=== PATIENT | female | born 1980 | race African-American/Black ===

== ENCOUNTER 2017-08-13 04:26 | Inpatient (IN) | payer OTHER ==
[2017-08-13] MEDS ORDERED: Albuterol Sulfate 2.5 mg/3 ml Neb ONE ×3 (04:49→05:04)
[2017-08-13] MEDS ORDERED: Albuterol Sulfate 2.5 mg/0.5 ml Neb ONE (04:50)
[2017-08-13] MEDS ORDERED: methylPREDNISolone Sod Succ/PF 125 MG/2 ML VIAL ONE (04:58)
[2017-08-13] MEDS ORDERED: Water For Inject, Bacteriostat 30 ML ONE (04:59)
[2017-08-13] MEDS ORDERED: Sterile Water 0 ML ONE (04:59)
[2017-08-13 05:24] LABS: #Eosinphils 0.2 thou/uL (0.0-0.7); #Lymphocytes 1.6 thou/uL (1.20-3.40); #Monocytes 0.3 thou/uL (0.11-0.59); #Neutrophils 5.3 thou/uL (1.40-6.50); %Basophils 0.3 % (0.0-1.0); %Eosinophils 2.9 % (0.0-10.0); %Lymphocytes 21.3 % (21.0-51.0); %Monocytes 4.1 % (0.0-10.0); Hematocrit 38.1 % (36.0-47.0); Mean Platelet Volume 7.6 fL (7.4-10.4); Red Blood Cell (RBC) Count 4.68 mill/uL (4.20-5.40); White Blood Cell (WBC) Count 7.4 thou/uL (4.8-10.8)
[2017-08-13] MEDS ORDERED: Azithromycin 500 MG VIAL ONE (05:25)
[2017-08-13] MEDS ORDERED: Sulfameth/Trimethoprim DS 800-160mg TAB ONE (05:25)
[2017-08-13 05:34] LABS: Oxyhemoglobin 97.1 % (94.0-97.0); Sodium 141 mmol/L (135-148)
[2017-08-13 05:36] LABS: Modified Allen's Test POSITIVE; Spontaneous Rate 24 min; Vent YES
[2017-08-13 05:47] LABS: Lactic Acid - Sepsis 1.9 mmol/L (0.5-2.2)
[2017-08-13 05:50] LABS: ALT (SGPT) 18 U/L (8-55); AST (SGOT) 16 U/L (5-34); Alkaline Phosphatase 80 U/L (40-150); Anion Gap 12 mmol/L (10-20); BUN (Urea Nitrogen) 7 mg/dL (7.0-18.7); Bilirubin, Total 0.2 mg/dL (0.2-1.2); CK (CPK) 142 U/L (29-168); Calc. Creatinine Clearance 0 mL/min (70-130); Carbon Dioxide 25 mmol/L (22-29); Chloride 105 mmol/L (98-107); Estimated GFR-MDRD Greater than 90; Globulin 3.4 g/dL (2.4-3.5); Lipase 9 U/L (8-78); Protein, Total 7.6 g/dL (6.0-8.3)
[2017-08-13 05:53] LABS: Oxyhemoglobin 97.8 % (94.0-97.0); Sodium 140 mmol/L (135-148)
[2017-08-13 05:54] LABS: Troponin I Less than 0.010 ng/mL (< 0.028)
[2017-08-13 05:54] LABS: Modified Allen's Test POSITIVE
[2017-08-13 05:55] LABS: Vent YES
[2017-08-13] MEDS ORDERED: Ondansetron HCl/PF 4 MG/2 ML Vial IVP PRN (07:07)
[2017-08-13] MEDS ORDERED: Ondansetron ODT 4 MG TAB SL PRN (07:07)
[2017-08-13] MEDS ORDERED: Acetaminophen 325 MG TAB PO PRN (07:07)
[2017-08-13] MEDS ORDERED: Albuterol Sulfate 2.5 mg/0.5 ml Neb NEB SCH (07:15)
[2017-08-13] MEDS: Albuterol Sulfate 2.5 mg/3 ml Neb NEB SCH ×5 (07:19→22:13)
[2017-08-13 07:20] VITALS: BMI 58.3
--- NOTE | 2017-08-13 08:02 | RAD ---
UPRIGHT PORTABLE CHEST 1 VIEW: Date: 08/13/17 HISTORY: 37-year-old female with dyspnea, coughing, and shortness of breath. COMPARISON: 02/11/17. FINDINGS: Minimal increased bronchovascular markings bilaterally. There is improvement from a 02/11/17 study. IMPRESSION: Increased bronchovascular markings without confluent pneumonia. POS: [facility]
--- NOTE | 2017-08-13 08:03 | RAD ---
CHEST ONE VIEW: History: 37-year-old with dyspnea. FINDINGS: Mild increased bronchovascular markings bilaterally. There is some mild vascular congestion. No confl uent pneumonia, overt edema, or significant pleural effusion. IMPRESSION: Increased bronchovascular markings and mild vascular congestion, stable from prior study. No new proc ess. POS: [facility]
[2017-08-13] MEDS ORDERED: Furosemide 40 MG/4 ML VIAL ONE (08:37)
[2017-08-13] MEDS ORDERED: Sulfameth/Trimethoprim DS 800-160mg TAB PO SCH (09:00)
[2017-08-13] MEDS ORDERED: Amlodipine 5 MG TAB PO SCH (09:00)
[2017-08-13] MEDS ORDERED: Labetalol 100 MG/20 ML MDV SLOW IVP PRN (09:06)
[2017-08-13 09:12] LABS: Troponin I Less than 0.010 ng/mL (< 0.028)
[2017-08-13] MEDS ORDERED: Furosemide 40 MG/4 ML VIAL SLOW IVP SCH (09:15)
[2017-08-13] MEDS: Enoxaparin Sodium 40 MG/0.4 ML SYRINGE SC SCH (10:54)
[2017-08-13] MEDS: Mometasone/Formoterol 120 PUFF INHALER INH SCH ×2 (11:07→19:01)
--- NOTE | 2017-08-13 11:15 | HP-2 ---
DATE OF ADMISSION: 08/13/2017 CODE STATUS: FULL. PRIMARY CARE PHYSICIAN: [facility]. ATTENDING: Dr. Chaparro Garcia RESIDENT: PGY-1 - Dr. Maru Thomas HISTORIAN: Patient. SPECIALIST: Dr. Shea. CHIEF COMPLAINT: Shortness of breath. HISTORY OF PRESENT ILLNESS: December Jamey is a 37-year-old female with a past medical history of asthma and HIV brought in via EMS for shortness of breath. The patient states that she uses albuterol intermittently. She denies fevers, chills, URI symptoms. She has a history of HIV. When we were getting this history, the patient was on BiPAP in the ER, she had just received ketamine and she was mildly sedated. She had a GCS of 13. She would open her eyes to command and she would follow commands. She opened her eyes to my voice and she followed commands. ER: The patient received epinephrine, Bactrim, Rocephin, Solu-Medrol and a nebulized treatment x1. The patient also received ketamine before she was placed on BiPAP. PAST MEDICAL HISTORY: HIV, asthma, GERD, and likely obstructive sleep apnea and hypertension. PAST SURGICAL HISTORY: None. ALLERGIES: AMPICILLIN. MEDICATIONS: Dulera, Protonix, amlodipine, albuterol. FAMILY HISTORY: None. SOCIAL HISTORY: Denies tobacco, alcohol, or drug use. REVIEW OF SYSTEMS: GENERAL: Denies fevers, chills. RESPIRATORY: Denies cough, congestion. Endorses shortness of breath and difficulty breathing. CARDIOVASCULAR: No chest pain or palpitations. GASTROINTESTINAL: Denies nausea or vomiting. SKIN: Denies rashes or lesions. MUSCULOSKELETAL: Denies pain, tenderness. NEURO: Denies weakness. PHYSICAL EXAMINATION: VITAL SIGNS: Blood pressure 173/108, pulse 88, respiratory rate 23, T-max 98.9 , pulse oximetry 90% on BiPAP with settings of 13 and 6 and a rare 14. GENERAL: Alert and oriented x4, no apparent distress, obese, slightly sedated. GCS of 13. EYES: PERRLA, EOMI. ENT: Nasal mucosa and oropharynx within normal limits. NECK: Supple, no lymphadenopathy, no thyromegaly. CARDIOVASCULAR: Regular rate and rhythm. No murmurs, rubs or gallops, 2+, pedal and radial pulses. RESPIRATORY: Increased effort, subcostal retractions, wheezing bilaterally throughout all lung molina. ABDOMEN: Soft, nontender to palpation. Bowel sounds in all 4 quadrants. No mass or distention. MUSCULOSKELETAL: Structure within normal limits. EXTREMITIES: No clubbing, cyanosis or edema. NEUROLOGIC: No focal deficits. PSYCHIATRIC: Appropriate. LABORATORY DATA: CBC 7.4, 12.3, 38.1, 254. CMP; 139, 3.0, 105, 25, 7.73, 198. AST, ALT, alkaline phosphatase; 16, 18, 80. Calcium 9, total protein 7.6, albumin 4.2, total bilirubin 0.2, lipase 9. CR on a prior admission was 14. ABG; 7.21, 65, 156 and 26, repeat pH after BiPAP was 7.25. EKG: Normal sinus rhythm. Chest x-ray no evidence of infiltrate or consolidation. ASSESSMENT AND PLAN: This is a 37-year-old female with a past medical history of asthma and human immunodeficiency virus who presents with shortness of breath, hypoxia admitted for acute hypoxic hypercapnic respiratory failure secondary to asthma. 1. Acute Hypoxic Hypercapnic Respiratory Failure: The patient was placed on BiPAP, was seen by Dr. Hunter in the ER who recommended keeping the patient on BiPAP for the next 4-5 hours and then reevaluating the patient's respiratory status at that point to evaluate if the patient should be intubated or not. The patient was placed on methylprednisolone 40 mg IV q.6h. The patient was placed on albuterol q.4h. scheduled and q.2h. p.r.n.The patient was placed on Dulera. If there is an allergy related etiology, would recommend placing the patient on Zyrtec and/or Evelyn. 2. Respiratory acidosis secondary to an asthma exacerbation. The patient was placed on on BiPAP after initial abg drawn in the ER, with a repeat abg drawn showing mild improvement. It was decided with Dr. Hunter at bedside that we will repeat an ABG in 4-5 hours after the patient has been on BiPAP for that amount of time to evaluate for improvement. If worsening of symptoms, the patient may require intubation at that point. 3. Human immunodeficiency virus. We will consult Dr. Shea who is the patient' s doctor who manages her HIV. The patient was given Bactrim in the ER for prophylaxis. We will reorder the patient's CD4 count to evaluate where she is at. 4. Hypertension. We will restart the patient's amlodipine at 2.5 mg p.o. daily. 5. Gastroesophageal reflux disease. We will start the patient on her home medication of Protonix. 6. Likely obstructive sleep apnea. We will continue to monitor on BiPAP. 7. Possible pneumonia. The patient may not mount a pneumonia that will be evident on chest x-ray due to her HIV status. We will consider treating the patient empirically with antibiotics. The patient is covered at this time for 24 hours due to prophylactic antibiotics with Rocephin and Bactrim in the ER. 8. Deep venous thrombosis. We will place the patient on Lovenox. DISPOSITION/LENGTH OF HOSPITAL STAY: 3 days. Symptomatic medications will be provided. The history and physical exam as well as management discussed with Dr. Garcia. MARITA
[2017-08-13 11:47] LABS: Troponin I Less than 0.010 ng/mL (< 0.028)
[2017-08-13] MEDS ORDERED: SODIUM CHLORIDE 0.9% IVPB SCH (12:00)
[2017-08-13] MEDS ORDERED: METHYLPREDNISOLONE SOD SUCC IVPB SCH (12:00)
[2017-08-13] MEDS: Labetalol HCl 100 MG/20 ML VIAL SLOW IVP PRN ×3 (14:16→21:04)
[2017-08-13] MEDS: Acyclovir 800 mg Tablet PO SCH (20:02)
[2017-08-13] MEDS: Metoprolol Tartrate 25 MG TAB PO SCH (20:02)
[2017-08-13] MEDS ORDERED: FLU VACC QS2017-18 36 mo. & older 0.5 ML SYRINGE IM ONE (21:00)
[2017-08-14] MEDS ORDERED: Lorazepam 1 MG TAB PO SCH (00:15)
--- NOTE | 2017-08-14 00:34 | CON ---
DATE OF CONSULTATION: 08/13/2017 SERVICE: Pulmonary Medicine. REASON FOR CONSULTATION: Respiratory failure. HISTORY OF PRESENT ILLNESS: Patient is a 37-year-old -Indian female with past medical history of significant for HIV. At one point in the past, she presented to the hospital with an acute respiratory issue. She was found to have diastolic heart failure and she was diuresed adequately. She was discharged home and did really quite well. She had radiographic clearance of her chest x-ray. A couple of months later, she had a repeat pulmonary infiltrate. At this time, it did not clear with diuretics. Additional investigation revealed that she had HIV and she was likely suffering from PJP. She was initiated on some empiric antibiotics and she actually improved dramatically. At this time, however, she is on prophylaxis. She presented to the emergency department with a 7-day history of increasing difficulty with breathing. She presented with a basically abrupt asthma exacerbation. She has been using her p.r.n. albuterol for the last 2-3 days fairly regularly. This has failed to improve her symptoms. Prior to this, she had fairly infrequent symptoms. PAST MEDICAL HISTORY: 1. HIV. 2. Gastroesophageal reflux disease. 3. Obstructive sleep apnea, likely. 4. Chronic diastolic heart failure. 5. Hypertension. 6. Asthma, possible. PAST SURGICAL HISTORY: None. SOCIAL HISTORY: Negative for current tobacco, alcohol, or illicit drug use. She denies any exposure to chemicals, dust, asbestos, or tuberculosis. FAMILY HISTORY: Noncontributory. ALLERGIES: AMPICILLIN. MEDICATIONS: List of her outpatient medications were reviewed. Interestingly, she is not on anything for HIV. REVIEW OF SYSTEMS: General, head, ears, eyes, nose, throat, cardiovascular, respiratory, GI, , musculoskeletal, neurologic, and skin are negative except as mentioned in the HPI. PHYSICAL EXAMINATION: VITAL SIGNS: Afebrile, pulse 100, blood pressure 167/85, respirations 23, saturation 96% on 3 liters nasal cannula at this time. Earlier, she required BiPAP which need to be titrated aggressively up and down. HEENT: Normocephalic, atraumatic. Sclerae are white, conjunctivae pink. Oral mucosa is moist without lesions. LUNGS: Decent air entry. There is a polyphonic wheeze throughout bilateral lung molina with prolonged expiratory phase. Careful auscultation of the bibasilar region also demonstrates fine crackles. No rhonchi are appreciated. HEART: Normal rate, regular. ABDOMEN: Soft, nontender, nondistended. Bowel sounds are positive. MUSCULOSKELETAL: No cyanosis or clubbing. No pitting in the bilateral lower extremities. NEUROLOGIC: Grossly nonfocal. LABORATORY DATA: WBC 7.4, hemoglobin 12.3, platelets 254,000. Neutrophil count is 71%, pH 7.22, pCO2 65, originally which improved very slightly on BiPAP. PO2 was 250 at the time on 40% FiO2. Troponin is unremarkable x2. LDH 214, lactic acid 1.9. TSH 1.2. Lipase is unremarkable. Liver function studies were also unremarkable. Potassium 3.0, but otherwise basic metabolic profile was unremarkable. IMAGING: Chest x-ray demonstrates soft tissue attenuation, but there is increased bronchovascular markings and mild vascular congestion. This is stable compared to prior evaluation. ASSESSMENT: 1. Acute hypoxic and hypercapnic respiratory failure. 2. Asthma with acute exacerbation, possible. 3. Acute on chronic diastolic heart failure. 4. Morbid obesity. 5. Obstructive sleep apnea. 6. 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 7. Obstructive sleep apnea, still suspected. PLAN: I will provide her with a dose of Lasix. She is a bit volume overloaded , which could create a cardiac wheeze. We will continue aggressive titration of her BiPAP. If she is not tolerating significant breaks by this afternoon, intubation will need to be performed. In the meantime, we will be aggressive with nebulized medications and steroids. At this point, I do not see any indication for antibiotics. Critical Care will continue to follow. CRITICAL CARE TIME: 45 minutes. MARITA
[2017-08-14] MEDS: Albuterol Sulfate 2.5 mg/3 ml Neb NEB SCH ×2 (02:50→08:23)
[2017-08-14 04:51] LABS: #Eosinphils 0.1 thou/uL (0.0-0.7); #Monocytes 0.3 thou/uL (0.11-0.59); #Neutrophils 10.8 thou/uL (1.40-6.50); %Basophils 0.1 % (0.0-1.0); %Eosinophils 0.4 % (0.0-10.0); %Lymphocytes 8.4 % (21.0-51.0); %Monocytes 2.2 % (0.0-10.0); Hematocrit 36.6 % (36.0-47.0); Mean Platelet Volume 7.7 fL (7.4-10.4); Red Blood Cell (RBC) Count 4.49 mill/uL (4.20-5.40); White Blood Cell (WBC) Count 12.2 thou/uL (4.8-10.8)
[2017-08-14 05:01] LABS: Anion Gap 10 mmol/L (10-20); BUN (Urea Nitrogen) 13 mg/dL (7.0-18.7); Calc. Creatinine Clearance 266 mL/min (70-130); Calcium 9.7 mg/dL (7.8-10.44); Carbon Dioxide 27 mmol/L (22-29); Chloride 106 mmol/L (98-107); Estimated GFR-MDRD Greater than 90
--- NOTE | 2017-08-14 07:16 | PDOC.FM ---
- Subjective Subjective: Patient is doing well since BiPAP was discontinued. She has been able to maintain oxygen saturations without supplemental oxygen. - Objective MAR Reviewed: Yes Vital Signs & Weight: Vital Signs (12 hours) Temp Pulse Resp BP Pulse Ox 08/14/17 03:00 98.7 F 08/14/17 02:50 85 17 95 08/13/17 23:00 98.1 F 08/13/17 22:13 97 22 H 97 08/13/17 21:04 103 H 175/68 H 08/13/17 19:29 99.0 F 103 H 20 97 Weight Weight 162.9 kg Most Recent Monitor Data Heart Rate from ECG 92 NIBP 146/94 NIBP BP-Mean 113 Respiration from ECG 21 SpO2 95 I&O: 08/13/17 08/14/17 08/15/17 06:59 06:59 06:59 Intake Total 1132 Output Total 3200 Balance -2067 Result Diagrams: 08/14/17 04:14 08/14/17 04:14 <Katelyn Moreno - Last Filed: 08/14/17 10:13> - Objective Vital Signs & Weight: Vital Signs (12 hours) Temp Pulse Resp BP Pulse Ox 08/14/17 16:45 98.6 F 88 16 146/87 H 95 08/14/17 11:00 98.0 F 70 16 94 L 08/14/17 09:32 75 08/14/17 08:26 99 08/14/17 08:23 75 16 99 08/14/17 08:00 98.3 F 75 20 98 Weight Weight 162.9 kg Most Recent Monitor Data Heart Rate from ECG 97 NIBP 171/80 NIBP BP-Mean 115 Respiration from ECG 20 SpO2 95 I&O: 08/13/17 08/14/17 08/15/17 06:59 06:59 06:59 Intake Total 1132 1000.1 Output Total 3200 165 Balance -2067 835.1 Result Diagrams: 08/14/17 04:14 08/14/17 04:14 <David Haile - Last Filed: 08/14/17 17:16> Phys Exam - Physical Examination Constitutional: NAD HEENT: PERRLA Respiratory: wheezing present (diffuse, but less prominent compared to prior examination) Cardiovascular: RRR Gastrointestinal: soft, non-tender Musculoskeletal: no edema Neurological: moves all 4 limbs Psychiatric: A&O x 3 <Katelyn Moreno - Last Filed: 08/14/17 10:13> Dx/Plan (1) Acute respiratory failure with hypoxia Code(s): J96.01 - ACUTE RESPIRATORY FAILURE WITH HYPOXIA Status: Resolved Plan: Resolved. Pt no longer requiring oxygen. Likely secondary to a combination of asthma and pulmonary edema. Pt's most recent from January 2017 shows normal EF, with no diastolic dysfunction, but clinically appears to have some degree of dysfunction. Will discharge pt with inhaler for treatment of asthma as well as a diuretic medication. (2) HTN (hypertension) Code(s): I10 - ESSENTIAL (PRIMARY) HYPERTENSION Status: Chronic QualifierTitle: Hypertension type: essential hypertension Qualified Code( s): I10 - Essential (primary) hypertension Plan: Pt's home medications restarted. Will also add on HCTZ. (3) Diabetes mellitus Code(s): E11.9 - TYPE 2 DIABETES MELLITUS WITHOUT COMPLICATIONS Status: Acute Plan: Diet controlled per pt. Fasting blood sugar 136 this morning. Will check A1C. Consistent carb diet. (4) CINDI (obstructive sleep apnea) Code(s): G47.33 - OBSTRUCTIVE SLEEP APNEA (ADULT) (PEDIATRIC) Status: Chronic Plan: Pt to schedule outpatient sleep study with Dr. Hunter. (5) HIV (human immunodeficiency virus infection) Status: Chronic Plan: Continue Genvoya and prophylactic medications. CD4 count pending. Pt follows up regularly with Dr. Shea. - Plan Plan: Disposition: stable, will transfer to medical floor today. Possible discharge tomorrow. <Katelyn Moreno - Last Filed: 08/14/17 10:13> Attending Addendum - Attending Addendum I personally evaluated the patient and discussed the management with Dr. Moreno. I agree with the History, Examination, Assessment and Plan documented above with any addition or exceptions noted below. <David Haile - Last Filed: 08/14/17 17:16>
[2017-08-14] MEDS ORDERED: Elviteg/Cob/Emtri/Tenof Alafen [Genvoya Tablet] PO SCH ×2 (08:00)
[2017-08-14] MEDS: Mometasone/Formoterol 120 PUFF INHALER INH SCH ×2 (08:25→20:05)
[2017-08-14] MEDS: Amlodipine 10 MG TAB PO SCH (09:32)
[2017-08-14] MEDS: Metoprolol Tartrate 25 MG TAB PO SCH ×2 (09:32→20:30)
[2017-08-14] MEDS: predniSONE 20 MG TAB PO SCH (09:32)
[2017-08-14] MEDS: Acyclovir 800 mg Tablet PO SCH ×3 (09:33→20:31)
[2017-08-14] MEDS: Enoxaparin Sodium 40 MG/0.4 ML SYRINGE SC SCH (09:33)
[2017-08-14] MEDS: Fluconazole 100 MG TAB PO SCH (09:33)
[2017-08-14] MEDS ORDERED: Hydrochlorothiazide 25 MG TAB PO SCH (10:00)
[2017-08-14 10:38] LABS: Hemoglobin A1c 5.8 % (4.0-6.0)
[2017-08-14 12:15] LABS: Absolute CD4 17 /uL (359-1519); Lymphocytes/Gated Cell Count 0.4 x10E3/uL (0.7-3.1)
--- NOTE | 2017-08-14 19:22 | PRG ---
DATE OF SERVICE: 08/14/2017 SERVICE: Pulmonary Medicine. INTERVAL HISTORY: The patient doing great from a respiratory standpoint. She denies any current genevieve rtness of breath, fevers, chills, nausea, or vomiting. She remains on a little bit of nasal cannula. She has not required any additional BiPAP overnight otherwise. She started getting better shortly after she was given a dose of Lasix and had significant urine output with it. She really responded t oo quickly to therapy for this to be office services representative of true asthma exacerbation. PHYSICAL EXAMINATION: VITAL SIGNS: Afebrile, pulse 70, blood pressure 171/80, respirations 16, and saturation 94% on 3 lit ers nasal cannula. GENERAL: Patient is awake, alert, in no apparent distress. LUNGS: Excellent air entry. There is minimal polyphonic wheezing in the bibasilar region. She is m uch improved air entry and there is no longer significant prolonged expiratory phase. Crackles are e vident in very minimal. HEART: Normal rate, regular. ABDOMEN: Soft, nontender, nondistended. Bowel sounds positive. MUSCULOSKELETAL: No cyanosis or clubbing. No pitting in the bilateral lower extremities. NEUROLOGIC: Grossly nonfocal. LABORATORY DATA: WBC 12.2, hemoglobin 11.7, platelets 265,000. Basic metabolic profile is unremarka ble. Hemoglobin A1c is normal. CD4 count is 17. ASSESSMENT: 1. Acute hypoxic and hypercapnic respiratory failure. 2. Asthma with acute exacerbation, possible. 3. Acute on chronic diastolic heart failure. 4. Morbid obesity. 5. Obstructive sleep apnea. 6. Human immunodeficiency virus with low CD4 count. 7. Obstructive sleep apnea, suspected. PLAN: We will continue diuresing her gently as time goes on. At this point, she is stable for trans ition out of the hospital. I would like for a followup with her previously scheduled plan of getting a polysomnogram prior to being seen in clinic. We can consider giving her a combination long-acting beta agonist, inhaled corticosteroid. Steroids will be deescalated. Pulmonary will continue to fol low her this time being.
[2017-08-15 06:45] LABS: Anion Gap 11 mmol/L (10-20); BUN (Urea Nitrogen) 19 mg/dL (7.0-18.7); Calc. Creatinine Clearance 261 mL/min (70-130); Calcium 9.3 mg/dL (7.8-10.44); Carbon Dioxide 24 mmol/L (22-29); Chloride 110 mmol/L (98-107); Estimated GFR-MDRD Greater than 90
[2017-08-15] MEDS: Mometasone/Formoterol 120 PUFF INHALER INH SCH (06:46)
--- NOTE | 2017-08-15 08:44 | PDOC.FM ---
- Subjective Subjective: Patient is doing well this morning. Her breathing remains stable. No adverse events overnight. - Objective MAR Reviewed: Yes Vital Signs & Weight: Vital Signs (12 hours) Temp Pulse Resp BP Pulse Ox 08/15/17 04:00 98.0 F 69 20 151/98 H 94 L 08/15/17 01:22 98.6 F 95 20 151/83 H 94 L 08/14/17 20:05 102 H 16 97 08/14/17 20:00 98.5 F 102 H 16 151/85 H 97 Weight Weight 162.9 kg Most Recent Monitor Data Heart Rate from ECG 97 NIBP 171/80 NIBP BP-Mean 115 Respiration from ECG 20 SpO2 95 I&O: 08/14/17 08/15/17 08/16/17 06:59 06:59 06:59 Intake Total 1132 2480.1 Output Total 3200 165 Balance -6 2315.1 Result Diagrams: 08/14/17 04:14 08/15/17 05:16 <Katelyn Moreno - Last Filed: 08/15/17 10:19> - Objective Vital Signs & Weight: Vital Signs (12 hours) Temp Pulse Resp BP Pulse Ox 08/15/17 08:55 75 08/15/17 08:35 98.5 F 75 20 136/80 93 L 08/15/17 08:00 98.0 F 75 20 94 L 08/15/17 04:00 98.0 F 69 20 151/98 H 94 L 08/15/17 01:22 98.6 F 95 20 151/83 H 94 L Weight Weight 162.9 kg Most Recent Monitor Data Heart Rate from ECG 97 NIBP 171/80 NIBP BP-Mean 115 Respiration from ECG 20 SpO2 95 I&O: 08/14/17 08/15/17 08/16/17 06:59 06:59 06:59 Intake Total 1132 2480.1 Output Total 3200 165 Balance -2 2315.1 Result Diagrams: 08/14/17 04:14 08/15/17 05:16 <David Haile A - Last Filed: 08/15/17 13:03> Phys Exam - Physical Examination Constitutional: NAD Respiratory: clear to auscultation bilateral Cardiovascular: RRR Gastrointestinal: soft, non-tender Musculoskeletal: edema present Neurological: moves all 4 limbs Psychiatric: A&O x 3 Skin: no rash <Katelyn Moreno - Last Filed: 08/15/17 10:19> Dx/Plan (1) Acute respiratory failure with hypoxia Code(s): J96.01 - ACUTE RESPIRATORY FAILURE WITH HYPOXIA Status: Resolved Plan: Resolved. Pt no longer requiring oxygen. Likely secondary to a combination of asthma and pulmonary edema. Pt's most recent from January 2017 shows normal EF, with no diastolic dysfunction, but clinically appears to have some degree of dysfunction. Will discharge pt today with inhaler for treatment of asthma as well as HCTZ. (2) HTN (hypertension) Code(s): I10 - ESSENTIAL (PRIMARY) HYPERTENSION Status: Chronic QualifierTitle: Hypertension type: essential hypertension Qualified Code( s): I10 - Essential (primary) hypertension Plan: BPs have significantly improved. (3) Diabetes mellitus Code(s): E11.9 - TYPE 2 DIABETES MELLITUS WITHOUT COMPLICATIONS Status: Chronic Plan: Diet controlled per pt. A1C 5.2. Consistent carb diet. (4) CINDI (obstructive sleep apnea) Code(s): G47.33 - OBSTRUCTIVE SLEEP APNEA (ADULT) (PEDIATRIC) Status: Suspected Plan: Pt implored to schedule outpatient sleep study with Dr. Hunter. (5) HIV (human immunodeficiency virus infection) Status: Chronic Plan: CD4 indicates noncompliance. Pt isntructed to take medications regularly and to make a follow-up appointment with Dr. Shea. <Katelyn Moreno - Last Filed: 08/15/17 10:19> Attending Addendum - Attending Addendum I personally evaluated the patient and discussed the management with Dr. Moreno. I agree with the History, Examination, Assessment and Plan documented above with any addition or exceptions noted below. <David Haile - Last Filed: 08/15/17 13:03>
[2017-08-15] MEDS: Metoprolol Tartrate 25 MG TAB PO SCH (08:55)
[2017-08-15] MEDS: Amlodipine 10 MG TAB PO SCH (08:55)
[2017-08-15] MEDS: predniSONE 20 MG TAB PO SCH (09:00)
[2017-08-15] MEDS: Fluconazole 100 MG TAB PO SCH (09:00)
[2017-08-15] MEDS ORDERED: Hydrochlorothiazide 25 MG TAB PO SCH (09:00)
[2017-08-15] MEDS: Acyclovir 800 mg Tablet PO SCH ×2 (09:04→14:38)
[2017-08-15] MEDS: Enoxaparin Sodium 40 MG/0.4 ML SYRINGE SC SCH (09:04)
--- NOTE | 2017-08-15 13:11 | PRG ---
DATE OF SERVICE: 08/15/2017 SERVICE: Pulmonary Medicine. INTERVAL HISTORY: The patient is doing fantastic from a respiratory standpoint. She is on room air. She feels like she is back to her baseline. She denies any current fevers, chills, nausea, vomitin g or chest discomfort. PHYSICAL EXAMINATION: VITAL SIGNS: Afebrile, pulse 75, blood pressure 136/80, respirations 20, saturation 93% on room air. GENERAL: The patient is awake, alert, no apparent distress. LUNGS: Excellent air entry. I do not appreciate prolonged expiratory phase. The wheezing has resol marjorie. Crackles are improved. HEART: Normal rate, regular. ABDOMEN: Soft, nontender, nondistended, bowel sounds positive. MUSCULOSKELETAL: No cyanosis or clubbing. No pitting in the bilateral lower extremities. NEUROLOGIC: Grossly nonfocal. LABORATORY DATA: WBC 12.2, hemoglobin 11.7, platelets 265,000. Basic metabolic profile is otherwise unremarkable. CD4 count 17. ASSESSMENT: 1. Acute hypoxic and hypercapnic respiratory failure. 2. Asthma with acute exacerbation, possible. 3. Acute on chronic diastolic heart failure. 4. Morbid obesity. 5. Obstructive sleep apnea. 6. Human immunodeficiency virus with low CD4 count. 7. Obstructive sleep apnea, suspected. PLAN: From my perspective, the patient is stable for transition out of hospital. Her wheezing and cr ackles have completely resolved. As such, steroids can be discontinued after a total duration of 5 d ays. She can go home on inhaled corticosteroid and long-acting beta agonist, but I am truthfully not convinced that she has true asthma and these will likely be deescalated in the outpatient setting. I will not consider doing that, however, until while after she has her polysomnogram and gets on ther apy for her presumed sleep apnea. I agree with hydrochlorothiazide. At this point, she has no requi rements for inpatient pulmonary critical care opinion, so I will sign off.
[2017-08-15 14:59] VITALS: BP 136/84; TEMP 98.6
--- NOTE | 2017-08-16 13:45 | DIS-2 ---
DATE OF ADMISSION: 08/13/2017 DATE OF DISCHARGE: 08/15/2017 ADMITTING ATTENDING: Chaparro Garcia M.D. DISCHARGE ATTENDING: David Haile M.D. RESIDENT: Katelyn Moreno M.D.-PGY-2 CONSULTS: Odin Hunter M.D. PROCEDURES: Chest x-ray that showed increased bronchovascular markings and mild vascular congestion. PRIMARY DIAGNOSES: 1. Acute hypoxemic hypercapnic respiratory failure, resolved. 2. Likely asthma with acute exacerbation. 3. Acute on chronic diastolic heart failure. SECONDARY DIAGNOSES: 1. Human immunodeficiency virus with low CD4 count. 2. Obstructive sleep apnea. 3. Morbid obesity. DISCHARGE MEDICATIONS: 1. Dulera inhaler 2 puffs inhalation b.i.d. 2. Metoprolol 12.5 mg p.o. b.i.d. 3. Azithromycin 1200 mg p.o. q.7 days. 4. Acyclovir 800 mg p.o. t.i.d. 5. Genvoya 1 tablet p.o. q.a.m. 6. Bactrim-DS 1 tab p.o. daily. 7. Amlodipine 10 mg p.o. daily. 8. Albuterol 1.25 mg per 3 mL nebulization 1.25 mg q.4h. p.r.n. 9. Proventil HFA 2 puffs inhalation every 6 hours p.r.n. 10. Hydrochlorothiazide 12.5 mg p.o. daily. DISCONTINUED MEDICATIONS: None. HISTORY OF PRESENT ILLNESS AND HOSPITAL COURSE: The patient is a 37-year-old female with the above past history who came in with a chief complaint of acute dyspnea. In the emergency d epartment she received Solu-Medrol, 3nebulized treatments, epinephrine and was placed on BiPAP. She was transferred to be the Intensive Care Unit, BiPAP was continued for several hours and the patient was also in the ICU given a dose of Lasix with a past history of diastolic heart failure and prior re sponse to Lasix. BiPAP was removed after several hours and the patient's shortness of breath improve d significantly. She was quickly transitioned off of BiPAP to nasal cannula and eventually was maint aining saturations on room air. The patient's blood pressures were significantly elevated, all home antihypertensives were continued and hydrochlorothiazide was added due to the patient's prior respond to diuretic therapy. The patient has a history of likely obstructive sleep apnea. The patient sees Dr. Hunter on an outp atient basis and outpatient sleep study has been discussed but was never scheduled. The patient was strongly encouraged, the patient would likely benefit from CPAP therapy. Regarding the patient's history of HIV this is a fairly new diagnosis. CD4 count was repeated and wa s noted to be 17 secondary to patient noncompliance and medication compliance was strongly encouraged . The patient did express understanding and agreed, close outpatient followup with Dr. Shea was ins tructed. The patient was transferred from the ICU to medical floor after admission and continued to do well. DISPOSITION: Stable. DISCHARGE INSTRUCTIONS: 1. Location: Home. 2. Diet: Heart healthy. 3. Activity: Ad renuka. 4. Followup: The patient to follow up with [facility] in 7 days. 5. Follow up with Dr. Hunter in 7 to [address] Shea in 7 to 14 days.
--- NOTE | 2017-08-31 14:22 | EKG ---
Test Reason : ASTHMA Blood Pressure : / mmHG Vent. Rate : 090 BPM Atrial Rate : 090 BPM P-R Int : 176 ms QRS Dur : 082 ms QT Int : 390 ms P-R-T Axes : 055 065 036 degrees QTc Int : 477 ms Normal sinus rhythm No ST/T wave changes Normal ECG Confirmed by MOLLY BURROWS DO ([id number]), assignment editor DANGELO FINLEY ([id number]) on 08/31/2017 2:21:46 PM Referred By: Confirmed By:MOLLY BURROWS DO
== END 2017-08-15 15:55 | disposition home or self-care (01) | DRG 189 ==
LOC: ERS 04:26 → CCU 05:24 → T4-B 08-14 11:06
PROVIDERS: ADMIT Family Medicine; ATTEND Family Medicine
PROC: 5A09357 Assistance with Respiratory Ventilation, Less than 24 Consecutive Hours, Continuous Positive Airway Pressure (ICD-10-PCS; principal; 2017-08-13)
DX: J96.01 Acute respiratory failure with hypoxia (principal); B20 Human immunodeficiency virus [HIV] disease; I50.33 Acute on chronic diastolic (congestive) heart failure; J96.02 Acute respiratory failure with hypercapnia; Z68.43 Body mass index [BMI] 50.0-59.9, adult; J45.901 Unspecified asthma with (acute) exacerbation; E87.2 Acidosis; E66.01 Morbid (severe) obesity due to excess calories; G47.33 Obstructive sleep apnea (adult) (pediatric); K21.9 Gastro-esophageal reflux disease without esophagitis; I11.0 Hypertensive heart disease with heart failure; E11.9 Type 2 diabetes mellitus without complications
CPT/HCPCS: 36415; 36416; 71010; 80048; 80053; 82550; 82553; 82805; 83036; 83605; 83615; 83690; 84443; 84484; 85025; 85048; 86361; 93005; 94640; 94660; 96365; 96375; 99292; A4216; J0456; J0696; J1650; J1940; J1956; J2920; J2930; J7050; J7506; J7611

== ENCOUNTER 2017-09-07 21:00 | Emergency (ER) | payer OTHER ==
[2017-09-07] MEDS ORDERED: Albuterol Sulfate 1.25 MG/3 ML NEB ONE (21:51)
[2017-09-07] MEDS ORDERED: Albuterol Sulfate 2.5 mg/0.5 ml Neb ONE ×2 (21:51→22:57)
[2017-09-07] MEDS ORDERED: Ketorolac Tromethamine 60 MG/2 ML VIAL ONE (22:10)
[2017-09-07] MEDS ORDERED: predniSONE 20 MG TAB ONE (22:10)
== END 2017-09-07 23:19 | disposition home or self-care (01) ==
LOC: ERS 21:00
DX: J45.901 Unspecified asthma with (acute) exacerbation (principal); B20 Human immunodeficiency virus [HIV] disease; J45.909 Unspecified asthma, uncomplicated; E11.9 Type 2 diabetes mellitus without complications; I10 Essential (primary) hypertension
CPT/HCPCS: 94640; 96372; J1885; J7506; J7611; J7620

== ENCOUNTER 2017-09-18 15:13 | Emergency (ER) | payer OTHER ==
[2017-09-18 15:43] LABS: #Eosinphils 0.6 thou/uL (0.0-0.7); #Lymphocytes 1.4 thou/uL (1.20-3.40); #Monocytes 0.3 thou/uL (0.11-0.59); #Neutrophils 3.1 thou/uL (1.40-6.50); %Basophils 0.4 % (0.0-1.0); %Eosinophils 10.3 % (0.0-10.0); %Lymphocytes 25.6 % (21.0-51.0); %Monocytes 5.4 % (0.0-10.0); %Neutrophils 58.3 % (42.0-75.0); Hemoglobin 12.5 g/dL (12.0-16.0); Mean Corpuscular HGB CONC 32.5 g/dL (32.0-36.0); Mean Corpuscular Hemoglobin 26.4 pg (27.0-31.0); Mean Corpuscular Volume 81.3 fl (81.0-99.0); Mean Platelet Volume 7.5 fL (7.4-10.4); Platelet Count 263 thou/uL (130-400); RBC Distribution Width 14.3 % (11.5-14.5); Red Blood Cell (RBC) Count 4.74 mill/uL (4.20-5.40); White Blood Cell (WBC) Count 5.4 thou/uL (4.8-10.8)
[2017-09-18 15:57] LABS: ALT (SGPT) 25 U/L (8-55); AST (SGOT) 17 U/L (5-34); Albumin 3.8 g/dL (3.5-5.0); Alkaline Phosphatase 80 U/L (40-150); Anion Gap 16 mmol/L (10-20); BUN (Urea Nitrogen) 12 mg/dL (7.0-18.7); Bilirubin, Total 0.3 mg/dL (0.2-1.2); CK (CPK) 107 U/L (29-168); Calc. Creatinine Clearance 0 mL/min (70-130); Carbon Dioxide 23 mmol/L (22-29); Chloride 106 mmol/L (98-107); Estimated GFR-MDRD Greater than 90; Globulin 3.8 g/dL (2.4-3.5); Glucose 108 mg/dL (70-105); Potassium 3.5 mmol/L (3.5-5.1); Protein, Total 7.6 g/dL (6.0-8.3); Sodium 141 mmol/L (136-145)
[2017-09-18 16:00] LABS: CKMB 1.4 ng/mL (0-6.6); Troponin I Less than 0.010 ng/mL (< 0.028)
--- NOTE | 2017-09-18 16:10 | RAD ---
RADIOGRAPH CHEST 1 VIEW: HISTORY: A 37-year-old female with dyspnea. FINDINGS: There are no air space densities, pulmonary edema, pneumothorax, or cardiomegaly. The lateral costop hrenic angles are sharp. IMPRESSION: No acute cardiopulmonary findings. jn [] POS: OFF
== END 2017-09-18 17:30 | disposition home or self-care (01) ==
LOC: ERS 15:13
DX: J40 Bronchitis, not specified as acute or chronic (principal); B20 Human immunodeficiency virus [HIV] disease; I10 Essential (primary) hypertension; E11.9 Type 2 diabetes mellitus without complications; J45.909 Unspecified asthma, uncomplicated; Z79.899 Other long term (current) drug therapy
CPT/HCPCS: 71045; 80053; 82550; 82553; 84484; 85025; 93005; 94760

== ENCOUNTER 2017-11-08 12:17 | Outpatient (CLI) | payer OTHER ==
--- NOTE | 2017-11-08 14:02 | RAD ---
CHEST 2 VIEWS: HISTORY: HIV. COMPARISON: 09/18/17. FINDINGS: Cardiac silhouette and pulmonary vasculature are unremarkable. Mediastinum is midline. There is no confluent airspace consolidation, pneumothorax, or pleural fluid apparent. IMPRESSION: No active cardiopulmonary abnormalities are demonstrated. POS: [facility]
== END 2017-11-08 12:18 | disposition home or self-care (01) ==
LOC: RAD 12:17
PROVIDERS: ATTEND Internal Medicine Infectious Disease
DX: B20 Human immunodeficiency virus [HIV] disease (principal)
CPT/HCPCS: 71046

== ENCOUNTER 2018-02-24 00:20 | Inpatient (IN) | payer MEDICAID, OTHER, SELFPAY ==
[2018-02-24] MEDS ORDERED: Magnesium Sulfate 2 GM/100 ML BAG ONE (00:37)
[2018-02-24] MEDS ORDERED: Albuterol Sulfate 2.5 mg/0.5 ml Neb ONE (00:40)
[2018-02-24] MEDS ORDERED: Albuterol Sulfate 2.5 mg/3 ml Neb ONE (00:40)
[2018-02-24] MEDS ORDERED: Sodium Chloride 0.9% 100 ML ONE (00:52)
[2018-02-24] MEDS ORDERED: cefTRIAXone\\ROCEPHIN 2 GM VIAL ONE (00:52)
[2018-02-24 01:12] LABS: #Basophils 0.2 thou/uL (0.0-0.2); #Eosinphils 0.6 thou/uL (0.0-0.7); #Lymphocytes 3.6 thou/uL (1.20-3.40); #Monocytes 0.6 thou/uL (0.11-0.59); #Neutrophils 2.5 thou/uL (1.40-6.50); %Basophils 2.1 % (0.0-1.0); %Eosinophils 7.7 % (0.0-10.0); %Lymphocytes 48.4 % (21.0-51.0); %Monocytes 7.5 % (0.0-10.0); %Neutrophils 34.3 % (42.0-75.0); Hemoglobin 11.9 g/dL (12.0-16.0); Mean Corpuscular HGB CONC 31.6 g/dL (32.0-36.0); Mean Corpuscular Hemoglobin 25.8 pg (27.0-31.0); Mean Corpuscular Volume 81.5 fl (81.0-99.0); Mean Platelet Volume 7.9 fL (7.4-10.4); Platelet Count 201 thou/uL (130-400); RBC Distribution Width 12.6 % (11.5-14.5); White Blood Cell (WBC) Count 7.4 thou/uL (4.8-10.8)
[2018-02-24 01:31] LABS: ALT (SGPT) 27 U/L (8-55); AST (SGOT) 23 U/L (5-34); Albumin 4.2 g/dL (3.5-5.0); Alkaline Phosphatase 76 U/L (40-150); Anion Gap 13 mmol/L (10-20); BUN (Urea Nitrogen) 13 mg/dL (7.0-18.7); Bilirubin, Total 0.3 mg/dL (0.2-1.2); CK (CPK) 183 U/L (29-168); Calc. Creatinine Clearance 0 mL/min (70-130); Calcium 9.4 mg/dL (7.8-10.44); Carbon Dioxide 25 mmol/L (22-29); Chloride 107 mmol/L (98-107); Estimated GFR-MDRD Greater than 90; Globulin 3.3 g/dL (2.4-3.5); Glucose 127 mg/dL (70-105); Potassium 3.4 mmol/L (3.5-5.1); Protein, Total 7.5 g/dL (6.0-8.3); Sodium 142 mmol/L (136-145)
[2018-02-24 01:35] LABS: Troponin I Less than 0.010 ng/mL (< 0.028)
[2018-02-24] MEDS ORDERED: Azithromycin 500 MG VIAL ONE (02:29)
[2018-02-24] MEDS ORDERED: hydrALAZINE 20 MG/ML VIAL ONE (02:29)
--- NOTE | 2018-02-24 03:04 | PDOC.FPRHP ---
- History of Present Illness Chief Complaint: SOB, wheezing, "asthma exacerbation" History of Present Illness: PCP: TJ Moreno 37 yo F w/ PMH of asthma, HTN, and HIV with last CD4 count of 17 presents for 1 week h/o of sob and wheezing. She states that her symptoms have worsened today and is associated with cough productive of green/yellow sputum although she reports that the cough is a chronic problem. She has been using her albuterol inhaler more frequently approx 7x/day. She denies fever, chills, nvdc, cp. She is a chronic O2 user after her PCP pneumonia and is on 3L all the time. Pt was previously taking various BP meds and jenvoya; however, she reports that she lost her insurance and has been off those medications since. ED Course: 10mg hydralazine, azithromycin, rocephin, atrovent, mag sulfate, albuterol sulfate - Allergies/Adverse Reactions Allergies Allergy/AdvReac Type Severity Reaction Status Date / Time ampicillin Allergy Intermediate Rash Verified 02/24/18 04:49 - Home Medications Medication Instructions Recorded Confirmed Type Mometasone/Formoterol 100/5 2 puff INH BID #1 inhaler 12/08/16 02/24/18 Rx [Dulera 100 Mcg/5 Mcg Inhaler] Albuterol Sulfate 1.25 mg NEB Q4H PRN #40 neb 02/11/17 02/24/18 Rx Albuterol Sulfate HFA (OR) 2 puff INH Q6H PRN #1 inh 02/11/17 02/24/18 Rx [Proventil Hfa (or)] Acyclovir [Zovirax] 800 mg PO TID 08/13/17 02/24/18 History Amlodipine [Norvasc] 10 mg PO DAILY 08/13/17 02/24/18 History Elviteg/Cob/Emtri/Tenof Alafen 1 tab PO QAM-WM 08/13/17 02/24/18 History [Genvoya Tablet] Hydrochlorothiazide 12.5 mg PO DAILY 02/24/18 02/24/18 History - History PMHx: hiv, htn, asthma, DMII PSHx: None FHx: None Social: Denies alcohol, tobacco, and drug use - Review of Systems General: denies: fever/chills, weight/appetite/sleep changes, night sweats, fatigue Eyes: denies: vision changes ENT: denies: nasal congestion, rhinorrhea Respiratory: reports: cough, congestion, shortness of breath Cardiovascular: denies: chest pain, palpitation, edema Gastrointestinal: denies: nausea, vomiting, diarrhea, constipation, abdominal pain Genitourinary: denies: incontinence, dysuria Skin: denies: rashes, lesions Musculoskeletal: denies: pain, tenderness, swelling Neurological: denies: numbness, syncope, weakness - Vital signs BP: 224/134 HR: 97 RR: 20 Tmax: 98.5 Pox: 99% on BiPAP (8//21%) Wt: 145 Kg - Physical Exam Constitutional: awake, alert and oriented, other (obese, mild distress, on BiPAP ) HEENT: normocephalic and atraumatic, PERRLA, EOMI, conjunctiva clear, no scleral icterus, grossly normal vision, grossly normal hearing Neck: FROM, trachea midline, no JVD Chest: no-tender to palpation Heart: RRR, normal S1/S2, no murmurs/rubs/gallops, pulses present, no edema Lungs: other (diffuse rhonchi and end expiratory wheezing throughout, breathing comfortbly on BiPAP w/o retractions or accesory mm use) Abdomen: soft, non-tender, bowel sounds present, no masses/distention Musculoskeletal: normal tone, ROM grossly normal Neurological: no focal deficit, normal sensation Skin: no rash/lesions, good turgor, capillary refill <2 seconds Heme/Lymphatic: no unusual bruising or bleeding, no purpura Psychiatric: normal mood and affect FMR H&P: Results - Labs Result Diagrams: 02/24/18 00:52 02/24/18 00:52 Lab results: WBC 7.4 thou/uL (4.8-10.8) 02/24/18 00:52 Hgb 11.9 g/dL (12.0-16.0) L 02/24/18 00:52 Hct 37.5 % (36.0-47.0) 02/24/18 00:52 MCV 81.5 fl (81.0-99.0) 02/24/18 00:52 Plt Count 201 thou/uL (130-400) 02/24/18 00:52 Neutrophils % 34.3 % (42.0-75.0) L 18 00:52 Sodium 142 mmol/L (136-145) 02/24/18 00:52 Potassium 3.4 mmol/L (3.5-5.1) L 18 00:52 Chloride 107 mmol/L (98-107) 18 00:52 Carbon Dioxide 25 mmol/L (22-29) 02/24/18 00:52 BUN 13 mg/dL (7.0-18.7) 02/24/18 00:52 Creatinine 0.80 mg/dL (0.6-1.1) 02/24/18 00:52 Glucose 127 mg/dL (70-105) H 02/24/18 00:52 Calcium 9.4 mg/dL (7.8-10.44) 02/24/18 00:52 Total Bilirubin 0.3 mg/dL (0.2-1.2) 02/24/18 00:52 AST 23 U/L (5-34) 02/24/18 00:52 ALT 27 U/L (8-55) 02/24/18 00:52 Alkaline Phosphatase 76 U/L (40-150) 02/24/18 00:52 Creatine Kinase 183 U/L (29-168) H 02/24/18 00:52 CK-MB (CK-2) 3.0 ng/mL (0-6.6) 02/24/18 00:45 B-Natriuretic Peptide Less than 10.0 pg/mL (0-100) 02/24/18 00:45 Serum Total Protein 7.5 g/dL (6.0-8.3) 02/24/18 00:52 Albumin 4.2 g/dL (3.5-5.0) 02/24/18 00:52 - EKG Interpretation EKG: sinus tachycardia - Radiology Interpretation Chest x-ray Status: image reviewed by me (b/l pulmonary edema) FMR H&P: A/P - Problem List (1) HIV (human immunodeficiency virus infection) Current Visit: No Status: Chronic (2) HTN (hypertension) Current Visit: No Status: Chronic Code(s): I10 - ESSENTIAL (PRIMARY) HYPERTENSION Qualifiers: Hypertension type: essential hypertension Qualified Code(s): I10 - Essential (primary) hypertension (3) Acute respiratory failure with hypoxia Current Visit: No Status: Resolved Code(s): J96.01 - ACUTE RESPIRATORY FAILURE WITH HYPOXIA (4) Pulmonary edema Current Visit: No Status: Resolved Code(s): J81.1 - CHRONIC PULMONARY EDEMA - Plan 1. Possible asthma exac 2/2 PCP pna-PCR for PCP + 08/2017, unsure if she was treated for full 21 day course. Will start bactrim for this while pending PCP PCR and CD4 counts. PPx for mac with azithromycin. Consider chest CT and ID consult in AM. For asthma, currently on bipap, check a blood gas, albuterol, steroids. Was supposed to be on dulera as well after last admission, but hasn't been on 2. AIDS, non compliant with meds-last CD4 in hospital was 17, restart Genvoya, consider consulting ID 3. htn urgency- will restart home amlodipine and hctz, at one point in ED systolic >200 and diastolic >110 4. DM II-check A1c and possibly restart metformin 5. Hx d. CHF- CXR appears as if there is some vascular congestion, administer lasix Disposition/LOS: guarded, >/= 2 days FMR H&P: Upper Level - Pertinent history Pt is a 37 yo F w/hx of AIDS, Hx of PCP pna, asthma presents to ED with several day hx of SOB and wheezing. States her allergies have been acting up and her home nebs havent been helping. With regard to her HIV/AIDS, she has been off of her Genvoya for about a month due to loss of insurance. However, she was not compliant before and was admitted for PCP pna in 08/2017 confirmed with PCR testing. She also states that she has been off of her metformin, amlodipine and other BP meds. She is currently not taking anything other than her nebs. No recent fever. - Pertinent findings Gen: resp distress on bipap, AOx4, obese HEENT: oropharynx clear without exudates or erythema Lungs: lungs limited air movement, wheezing throughout exp Cardiac: RRR, no murmurs, gallops, clicks, rubs, difficult to auscultate to full extent due to habitus Abd: no swelling, fluid wave, or generalized mild left side TTP LE: no swelling, warmth appreciated - Plan Date/Time: 02/24/18 0300 I, Consuelo Klein, have evaluated this patient and agree with findings/plan as outlined by recruiting internship resident. Pertinent changes/additions are listed here. 1. Possible asthma exac 2/2 PCP pna-PCR for PCP + 08/2017, unsure if she was treated for full 21 day course. Will start bactrim for this while pending PCP PCR and CD4 counts. PPx for mac with azithromycin. Consider chest CT and ID consult in AM. For asthma, currently on bipap, check a blood gas, albuterol, steroids. Was supposed to be on dulera as well after last admission, but hasn't been on 2. AIDS, non compliant with meds-last CD4 in hospital was 17, restart Genvoya, consider consulting ID 3. htn urgency- will restart home amlodipine and hctz, at one point in ED systolic >200 and diastolic >110 4. DM II-check A1c and possibly restart metformin 5. Hx d. CHF- CXR appears as if there is some vascular congestion, administer lasix Attending Addendum - Attending Addendum Date/Time: 02/24/18 3604 I personally evaluated the patient and discussed the management with Dr. Lopez this morning at time of admission. I agree with the History, Examination, Assessment and Plan documented above with any addition or exceptions noted below.
[2018-02-24] MEDS ORDERED: Furosemide 40 MG/4 ML VIAL ONE (03:51)
[2018-02-24] MEDS ORDERED: Sodium Chloride 0.9% 1,000 ML IV SCH (04:37)
[2018-02-24] MEDS ORDERED: Ondansetron HCl/PF 4 MG/2 ML Vial IVP PRN ×2 (04:37→04:40)
[2018-02-24] MEDS ORDERED: Acetaminophen 325 MG TAB PO PRN ×2 (04:37→04:40)
[2018-02-24] MEDS ORDERED: Ondansetron ODT 4 MG TAB SL PRN (04:37)
[2018-02-24] MEDS ORDERED: Guaifenesin DM 100-10/5 ML UDCUP PO PRN (04:40)
[2018-02-24] MEDS ORDERED: Ondansetron ODT 4 MG TAB PO PRN (04:40)
[2018-02-24] MEDS ORDERED: Albuterol Sulfate 2.5 mg/3 ml Neb NEB PRN (04:40)
[2018-02-24] MEDS ORDERED: Calcium Carbonate 500 MG ChewTAB PO PRN (04:40)
[2018-02-24 05:28] VITALS: BMI 42.5
--- NOTE | 2018-02-24 06:19 | PDOC.EVN ---
Event Note - Event Note Event Note: Date/Time: 02/24/18616 I personally evaluated the patient and discussed the management with Dr. Lopez. I agree with the History, Examination, Assessment and Plan. See his H&P. Karen is reports feeling "a million times" better after treatments given. She is off BiPAP and comfortable with 100% spO2 with nasal canula.
[2018-02-24] MEDS ORDERED: Albuterol Sulfate 2.5 mg/3 ml Neb NEB SCH (06:30)
[2018-02-24] MEDS ORDERED: Non-Formulary Item 1 EACH (Elviteg/Cob/Emtri/Tenof Alafen [Genvoya Tablet] 1 TAB) PO SCH (08:00)
[2018-02-24] MEDS: predniSONE 20 MG TAB PO SCH (08:10)
[2018-02-24] MEDS: Hydrochlorothiazide 25 MG TAB PO SCH (08:10)
[2018-02-24] MEDS: Sulfameth/Trimethoprim DS 800-160mg TAB PO SCH ×2 (08:10→20:48)
[2018-02-24] MEDS: Amlodipine 10 MG TAB PO SCH (08:10)
--- NOTE | 2018-02-24 08:44 | RAD ---
ONE VIEW CHEST: HISTORY: Asthma attack. FINDINGS: AP view chest is obtained on 02/24/18. Comparison is made to previous exam from 09/18/17. AP view chest demonstrates the lungs to be well aerated. No evidence of active intrathoracic disease is seen. No evidence of effusions, pneumonia, or pneumothorax seen. IMPRESSION: Unremarkable AP view chest. POS: [facility]
[2018-02-24] MEDS ORDERED: Furosemide 40 MG/4 ML VIAL SLOW IVP SCH (09:00)
--- NOTE | 2018-02-24 09:55 | CON ---
DATE OF CONSULTATION: 02/24/2018 SERVICE: Pulmonary Medicine REASON FOR CONSULTATION: IMCU patient. HISTORY OF PRESENT ILLNESS: The patient is a 37-year-old female with past medical history significant for asthma, HIV, and high blood pressure. She has been off of all of her medications for a couple of months now because she lost her insurance. She denies any current fevers, chills, nausea or vomiting. She had a 5-day history of increasing shortness of breath, dyspnea on exertion, and wheezing. In the Emergency Department, she had respiratory distress. She was placed on BiPAP. She was given some nebulized medications and steroids and tucked into the ICU because there were no [facility] beds available. As soon as she arrived here, BiPAP was discontinued. She is breathing comfortably and talking in full sentences. She indicated that her breathing was essentially back to baseline. Otherwise, there has been no interval change to her condition. She denies any recent hot, red, swollen joints, rashes, dysuria, abdominal discomfort, nausea, vomiting, diarrhea. Otherwise, she is in her usual state of health. She has been off of her HIV medications. She did not notify any physicians or the drug company to see whether or not she could get the drug for less expense. PAST MEDICAL HISTORY: 1. Asthma. 2. Morbid obesity. 3. HIV. 4. Type 2 diabetes mellitus. 5. Obstructive sleep apnea, suspected. PAST SURGICAL HISTORY: None. FAMILY HISTORY: Noncontributory. SOCIAL HISTORY: Negative for current alcohol, tobacco or illicit drug use. She denies any exposure to chemicals, dust, asbestos or tuberculosis. ALLERGIES: AMPICILLIN. MEDICATIONS: List of her inpatient medications were reviewed. No specific updates were made at this time. REVIEW OF SYSTEMS: General, head, ears, eyes, nose, throat, cardiovascular, respiratory, GI, , musculoskeletal, neurologic and skin is negative except as mentioned in the HPI. PHYSICAL EXAMINATION: VITAL SIGNS: Afebrile, pulse 108, blood pressure 182/154, respirations 22, saturation 98% on 2 liters nasal cannula. GENERAL: The patient is awake and alert, in no apparent distress. LUNGS: Excellent air entry. There is slightly prolonged expiratory phase. At the end of expiration, there is a little bit of wheezing. Crackles are also identified. HEART: Regular rate, tachycardic. ABDOMEN: Soft, nontender, nondistended. Bowel sounds are positive. MUSCULOSKELETAL: No cyanosis or clubbing. There is trace pitting in the bilateral lower extremities. NEUROLOGIC: Grossly nonfocal. LABORATORY: WBC 7.4, hemoglobin 11.9, platelets 201,000. Basic metabolic profile and liver function studies are essentially unremarkable. Potassium is 3.4. BNP below the assay limit of normal, troponin is low. IMAGING: Chest x-ray demonstrates no acute cardiopulmonary abnormality. ASSESSMENT: 1. Acute hypoxic respiratory failure, resolved. 2. Asthma with acute exacerbation. 3. Medical noncompliance. 4. Human immunodeficiency virus. 5. Hypertension. DISCUSSION AND PLAN: At this point, the patient simply needs to be back on her medications. She has returned to her usual state of breathing. As such, she can transition to the medical unit. Pulmonary will continue to follow, but from my perspective, she is even stable for transition home. Since she has already returned to baseline, we can limit her steroids to a 5-day course. She will need to contact the drug dance instructor for Dulera to see if she is a candidate for free drug. I have requested that she does this. If not, repeat exacerbations of asthma will be challenging to avoid. 70 minutes have been devoted to this patient in various activities. I personally reviewed all imaging studies and laboratory data noted within this document. For fifty percent of this time, I was interacting with the patient at the bedside or coordinating care with the care team. For the remainder of the time I was immediately available to the patient in the hospital unit. MARITA
[2018-02-24] MEDS: Potassium Chloride 20 MEQ TAB PO SCH ×2 (10:18→15:18)
[2018-02-24] MEDS: Labetalol HCl 100 MG/20 ML VIAL SLOW IVP PRN (10:51)
[2018-02-24] MEDS: Mometasone/Formoterol 120 PUFF INHALER INH SCH (18:30)
[2018-02-24] MEDS: Raltegravir Potassium 400 MG TAB PO SCH (20:48)
--- NOTE | 2018-02-24 22:25 | CON ---
DATE OF CONSULTATION: 02/24/2018 REASON FOR CONSULTATION: HIV infection, dyspnea. HISTORY OF PRESENT ILLNESS: A 37-year-old who is known to us from last year when she presented with newly identified HIV seropositive status, she was then diagnosed with pneumocystis pneumonia. Her pneumocystis PCR was positive. The HIV RNA PCR showed 4500 copies per mL and the Fungitell assay was positive greater than 500 picograms per mL. The CD4 cell count was 17. The patient responded to trimethoprim sulfamethoxazole and eventually was started on antiretroviral therapy. I had seen the patient in April and she had been started on Genvoya antiretroviral therapy. The lung sounds did had improved quite significantly, I saw her again in July. A CD4 cell count had gone up to 71 and viral load was suppressed. She still had some wheezing and we recommended a follow up with Dr. Hunter regarding her asthma management. That was the last time I saw her. Apparently, she had some issues with her Medicaid. Medicaid has now requirements for mandated meetings and work requirements, I am not sure about those, but for one reason or another, her Medicaid was canceled. Evidently, she has not been taking her medication now for 1 month. She now developed worsening chest tightness, wheezing, and some cough for the past few days before admission. Reportedly, she was using her inhalers, not on a daily basis because of also difficulties in obtaining the medication due to having lost her insurance. She had no fever or chills, no headaches. No diarrhea. No joint neuro symptoms. She wears oxygen on a chronic basis. On arrival, blood pressure was 200/150, pulse 110, respiratory rate 24, temperature 98.3. The exam showed mild respiratory distress and some wheezing present, which is distributed diffusely in upper lobes and lower lobes. Cardiovascular exam showed tachycardia, but the heart sounds are normal and abdomen was soft and nontender. Initial findings also included a white cell count 7.4, hemoglobin 11, platelets 201, 34% neutrophils and 48% lymphocytes, total lymphocyte count 3.6. The chemistry showed a creatinine of 0.8. Liver profile with normal findings. CK was 183, albumin 4.2. Chest x- ray showed unremarkable findings. No infiltrates. Currently, Ms. Concepcion is still having a little bit of difficulty with breathing. She has O2 per nasal cannula. She is awake, pleasant. Denies any headaches. No visual symptoms, sore throat, odynophagia, dysphagia. No chest pain. No abdominal pain, diarrhea, or genitourinary symptoms. No joint symptoms. PAST MEDICAL HISTORY: HIV infection since 2017, obesity, type 2 diabetes, asthma, and previous episodes of pneumonia, herpes zoster and trigeminal distribution. PAST SURGICAL HISTORY: Negative. SOCIAL HISTORY: Never a smoker, and lives with kids and . FAMILY HISTORY: with history of hepatitis C, reportedly negative HIV serology. ALLERGIES: AMPICILLIN. CURRENT MEDICATIONS: Tylenol, Ventolin, DuoNeb, Norvasc, azithromycin, labetalol, mometasone, ondansetron, prednisone, trimethoprim and sulfamethoxazole. PHYSICAL EXAMINATION: VITAL SIGNS: T-max 98.6, blood pressure 160/96, pulse 75, respirations 20, and O2 saturation 97%. SKIN: Did not show any abnormalities. She has a peripheral IV access. No Licona catheter. No lymphadenopathy. HEENT: Ocular movements are conjugate. Oral cavity with no evidence of oral thrush. Teeth in fairly decent shape. NECK: Supple, no jugular vein distention. LUNGS: Symmetric air entry with faint wheezing in the anterior lung molina bilateral. No crackles are noticed. HEART: Sounds showed S1, S2, without murmurs. No S3 or S4. ABDOMEN: Soft and not distended or tender. No ascites. No bladder distention. EXTREMITIES: No joint inflammatory activity. Pulses 1+ internal dorsalis pedis. Trace edema in lower extremities, moves extremities equally. NEUROLOGIC: Cognitive function appears to be intact. LABORATORY DATA: Has been discussed above. ASSESSMENT: Obesity with asthma, likely sleep apnea and recently diagnosed HIV infection in 2017 with an index diagnosis of pneumocystis pneumonia, which was treated with recovery. The patient had been started on antiretroviral therapy with good excellent response. Her CD4 cell count had gone up to 88 when last checked last year in July. Unfortunately, the patient has had problems with her insurance and has been 1 month without treatment. Her total lymphocyte count is above 3000 and I would hope that her CD4 cell count by now is above 200, which would place her out of range for pneumocystis pneumonia, at least would decrease the risk of that complication. In that scenario, then we would have to deal with her asthma and obstructive lung disease, which by itself is already a significant problem. This component of her problems is also not may be managed adequately because of financial issues, loss of insurance, and inability to fill her medications, having to ration her inhaler therapy at home. We will submit CD4 cell count or if has not yet been submitted the viral load, pneumocystis PCR from sputum and a Fungitell assay to help us determine the proper course of action, start Raltegravir and Truvada here in the hospital to give her some antiretroviral therapy coverage while she is here at least and after discharge, then we will try to at least obtain the antiretroviral therapy through patient fleet assistant program or get her enrolled with the [employer] to bypass her problems with Medicaid renewal. Other opportunistic processes will not be worked up at this point in time, since her total lymphocyte count is likely above 200. MTDD
[2018-02-25] MEDS: Labetalol HCl 100 MG/20 ML VIAL SLOW IVP PRN (00:29)
[2018-02-25 04:35] LABS: #Eosinphils 0.1 thou/uL (0.0-0.7); #Lymphocytes 2.1 thou/uL (1.20-3.40); #Monocytes 0.6 thou/uL (0.11-0.59); #Neutrophils 4.7 thou/uL (1.40-6.50); %Basophils 0.3 % (0.0-1.0); %Eosinophils 1.7 % (0.0-10.0); %Lymphocytes 27.5 % (21.0-51.0); %Neutrophils 62.4 % (42.0-75.0); Hemoglobin 12.3 g/dL (12.0-16.0); Mean Corpuscular HGB CONC 32.8 g/dL (32.0-36.0); Mean Corpuscular Hemoglobin 26.4 pg (27.0-31.0); Mean Corpuscular Volume 80.7 fl (81.0-99.0); Mean Platelet Volume 8.1 fL (7.4-10.4); Platelet Count 223 thou/uL (130-400); RBC Distribution Width 12.6 % (11.5-14.5); Red Blood Cell (RBC) Count 4.66 mill/uL (4.20-5.40); White Blood Cell (WBC) Count 7.5 thou/uL (4.8-10.8)
[2018-02-25 04:41] LABS: Anion Gap 12 mmol/L (10-20); BUN (Urea Nitrogen) 17 mg/dL (7.0-18.7); Calc. Creatinine Clearance 180 mL/min (70-130); Calcium 9.7 mg/dL (7.8-10.44); Carbon Dioxide 26 mmol/L (22-29); Chloride 107 mmol/L (98-107); Estimated GFR-MDRD Greater than 90; Glucose 117 mg/dL (70-105); Potassium 3.9 mmol/L (3.5-5.1); Sodium 141 mmol/L (136-145)
[2018-02-25] MEDS: Mometasone/Formoterol 120 PUFF INHALER INH SCH (06:23)
--- NOTE | 2018-02-25 07:48 | PDOC.FM ---
- Subjective Subjective: Patient is doing well overnight, no complaints or concerns at this time. BP elevated overnight, but improved gradually and is most recently in an appropriate range. Denies BELTRAN, N/V, CP, worsening SOB, visual disturbances. - Objective MAR Reviewed: Yes Vital Signs & Weight: Vital Signs (12 hours) Temp Pulse Resp BP BP Pulse Ox 02/25/18 07:43 98.3 F 99 18 165/92 H 94 L 02/25/18 06:20 102 H 18 92 L 02/25/18 05:02 95 02/25/18 04:12 98.3 F 102 H 20 138/80 95 02/25/18 00:29 109 H 202/97 H 02/25/18 00:00 97.8 F 103 H 20 202/97 H 93 L 02/24/18 23:37 98 02/24/18 20:00 97.9 F 109 H 20 184/101 H 97 Weight Admit Weight 119.295 kg Weight 169.785 kg Most Recent Monitor Data Heart Rate from ECG 88 NIBP 181/92 NIBP BP-Mean 131 Respiration from ECG 17 SpO2 96 I&O: 02/24/18 02/25/18 02/26/18 06:59 06:59 06:59 Intake Total 1320 Output Total 750 1450 Balance -750 -130 Result Diagrams: 02/25/18 03:47 02/25/18 03:47 <Misael Amador - Last Filed: 02/25/18 08:38> - Objective Vital Signs & Weight: Vital Signs (12 hours) Temp Pulse Resp BP BP Pulse Ox 02/25/18 09:24 99 165/92 H 02/25/18 07:43 98.3 F 99 18 165/92 H 94 L 02/25/18 06:20 102 H 18 92 L 02/25/18 05:02 95 02/25/18 04:12 98.3 F 102 H 20 138/80 95 02/25/18 00:29 109 H 202/97 H 02/25/18 00:00 97.8 F 103 H 20 202/97 H 93 L Weight Admit Weight 119.295 kg Weight 169.785 kg Most Recent Monitor Data Heart Rate from ECG 88 NIBP 181/92 NIBP BP-Mean 131 Respiration from ECG 17 SpO2 96 I&O: 02/24/18 02/25/18 02/26/18 06:59 06:59 06:59 Intake Total 1320 Output Total 750 1450 Balance -750 -130 Result Diagrams: 02/25/18 03:47 02/25/18 03:47 <ElizaToney - Last Filed: 02/25/18 11:40> Dx/Plan (1) Asthma exacerbation Code(s): J45.901 - UNSPECIFIED ASTHMA WITH (ACUTE) EXACERBATION Status: Acute Plan: improved, continue with medication regimen including daily medication and not just rescue inhaler (2) HIV (human immunodeficiency virus infection) Status: Chronic Plan: Dr. Shea consulted, recs greatly appreciated antiretrovirals adjusted as hospital does not have patient's home med (3) HTN (hypertension) Code(s): I10 - ESSENTIAL (PRIMARY) HYPERTENSION Status: Chronic QualifierTitle: Hypertension type: essential hypertension Qualified Code( s): I10 - Essential (primary) hypertension Plan: Improved overnight, will continue to monitor this morning, but seems to be improved on home regimen (4) Morbid obesity with BMI of 50.0-59.9, adult Code(s): E66.01 - MORBID (SEVERE) OBESITY DUE TO EXCESS CALORIES; Z68.43 - BODY MASS INDEX (BMI) 50-59.9 , ADULT Status: Chronic (5) CINDI (obstructive sleep apnea) Code(s): G47.33 - OBSTRUCTIVE SLEEP APNEA (ADULT) (PEDIATRIC) Status: Suspected (6) Hypokalemia Code(s): E87.6 - HYPOKALEMIA Status: Resolved - Plan Plan: Dispo: possibly ok to go home today or tomorrow pending BP and recs from ID and Pulm; patient has fallen out of the system the past 6-8 months and will need to discuss with patient the importance of staying on all medications. Will consult CM. <Misael Amador - Last Filed: 02/25/18 08:38> Attending Addendum - Attending Addendum Date/Time: 02/25/18 0246 I personally evaluated the patient and discussed the management with Dr. Amador I agree with the History, Examination, Assessment and Plan documented above with any addition or exceptions noted below. Patient doing well ok DC if continues stable. Asthma action plan po steroids prn. Patient aware need f/u Dr Monse and PCP monitor BP and asthma. <Toney Kay - Last Filed: 02/25/18 11:40>
[2018-02-25] MEDS ORDERED: Emtricitabine/Tenofovir 200-300 MG TAB PO SCH (09:00)
[2018-02-25] MEDS: Sulfameth/Trimethoprim DS 800-160mg TAB PO SCH (09:23)
[2018-02-25] MEDS: Hydrochlorothiazide 25 MG TAB PO SCH (09:23)
[2018-02-25] MEDS: Amlodipine 10 MG TAB PO SCH (09:24)
[2018-02-25] MEDS: predniSONE 20 MG TAB PO SCH (09:25)
[2018-02-25] MEDS: Raltegravir Potassium 400 MG TAB PO SCH (09:25)
[2018-02-25 12:10] VITALS: BP 138/84; TEMP 97.8
[2018-02-25 13:14] LABS: %CD4 (Helper/Inducer) 3.5 % (30.8-58.5); Absolute CD4 25 /uL (359-1519); Lymphocytes/Gated Cell Count 0.7 x10E3/uL (0.7-3.1); Total Lymphocyte 11 % (Not Estab.); WBC Total Count 5.8 x10E3/uL (3.4-10.8)
[2018-02-25] MEDS ORDERED: Azithromycin 500 MG in Sodium Chloride 0.9% 250 ML 250 ML IVPB SCH (23:59)
--- NOTE | 2018-02-26 14:12 | DIS-2 ---
DATE OF ADMISSION: 02/24/2018 DATE OF DISCHARGE: 02/25/2018 RESIDENT: Misael Amador D.O ADMITTING RESIDENT: David Haile M.D. DISCHARGE ATTENDING: Toney Kay MD CONSULTATIONS: Dr. Hunter of Pulmonology. PROCEDURES: Chest x-ray on 02/24/2018 showing no evidence of active intrathoracic disease, unremarka ble AP view chest. PRIMARY DIAGNOSIS: Acute asthma exacerbation. SECONDARY DIAGNOSES: 1. Human immunodeficiency virus/acquired immune deficiency syndrome. 2. Type 2 diabetes. 3. Morbid obesity. 4. Obstructive sleep apnea. 5. Hypertension. 6. Hypokalemia. DISCHARGE MEDICATIONS: 1. Prednisone 20 mg p.o. daily p.r.n. asthma exacerbation x5 days. 2. Dulera 200 mcg/5 mcg inhaler 2 puffs inhaled b.i.d. 3. Albuterol sulfate 1.25 mg nebulized every 4 hours as needed for wheezing. 4. Albuterol sulfate HFA 2 puffs inhaled every 6 hours as needed. 5. Norvasc 10 mg p.o. daily. 6. Hydrochlorothiazide 12.5 mg p.o. daily. 7. Genvoya 1 tablet q.a.m. with breakfast. DISCONTINUED MEDICATIONS: None. HISTORY OF PRESENT ILLNESS AND HOSPITAL COURSE: Patient is a 37-year-old -[place] female wit h past medical history significant for HIV/AIDS based on previous hospitalization in 08/2017 where gustavo vicente was diagnosed with the CD4 count of 17. At that time, she was also found to be positive for PCP pn eumonia and was treated accordingly during this episode. She was also started on antiretrovirals and established care with Dr. Hunter of Pulmonology and Dr. Shea of Infectious Disease. Since that ti la, the patient has not had adequate followup with either of these providers and reports that she has not been taking any medications besides her albuterol inhalers because of loss of insurance. During hospitalization, we attempted to discuss getting back on Medicaid; however, there were inconsistenci es in the patient's story and what Case Management was able to find out from the Medicaid offices. T he patient was provided information for how to get back on Medicaid during hospitalization. The alberto ent additionally was followed by Dr. Shea, who provided the patient with information on sumeet serv ices to prevent future relapses in treatment. The hospital does not carry her specific medication re roberto so she was instead started on Truvada and raltegravir. Regarding the patient's breathing difficulties in the emergency room, she was started on BiPAP and st arted on Bactrim and azithromycin soon after the patient arrived to the ICU. Her breathing status im proved and she was able to tolerate 2 liters nasal cannula which is her baseline. The patient was co ntinued on steroids during hospitalization and discharged home with prednisone. We also provided a 1 -month prescription with pollo for Dulera while the patient is working on getting her Medicaid back, but encouraged her to follow through with this as she will continue to have asthma exacerbations if she does not get on controlled inhaled corticosteroid and possibly further treatments. We also provi ded the patient with a short course of prednisone and discussed an asthma action plan, which was prov ided for her paper copy. Also, of note, the patient did have one of two blood cultures positive for coagulase negative Staphyl ococcus, which was believed to be a contaminant. DISPOSITION: Stable in the short term, but guarded long-term and most patient is able to get insured and take better care of herself including following up with Dr. Shea. DISCHARGE INSTRUCTIONS: 1. Location: Home. 2. Diet: As tolerated. 3. Activity: As tolerated. 4. Followup: Follow up with Dr. Shea in the next 7 days. Also at [facility], Dr. Moreno in the next 7 days.
[2018-02-27 12:17] LABS: LOG10 HIV-1 RNA 4.489 (.)
== END 2018-02-25 15:06 | disposition home or self-care (01) | DRG 189 ==
LOC: ERS 00:20 → CCU 04:23 → T4-B 11:29
PROVIDERS: ADMIT Family Medicine; ATTEND Family Medicine
PROC: 5A09357 Assistance with Respiratory Ventilation, Less than 24 Consecutive Hours, Continuous Positive Airway Pressure (ICD-10-PCS; principal; 2018-02-24)
DX: J96.01 Acute respiratory failure with hypoxia (principal); B20 Human immunodeficiency virus [HIV] disease; J45.901 Unspecified asthma with (acute) exacerbation; J81.1 Chronic pulmonary edema; Z68.41 Body mass index [BMI] 40.0-44.9, adult; G47.33 Obstructive sleep apnea (adult) (pediatric); E11.9 Type 2 diabetes mellitus without complications; I10 Essential (primary) hypertension; E87.6 Hypokalemia; Z88.0 Allergy status to penicillin; Z79.899 Other long term (current) drug therapy; Z79.2 Long term (current) use of antibiotics; Z79.52 Long term (current) use of systemic steroids; Z91.14 Patient's other noncompliance with medication regimen; E66.01 Morbid (severe) obesity due to excess calories; I16.0 Hypertensive urgency
CPT/HCPCS: 36415; 71045; 80048; 80053; 82553; 83880; 84484; 85025; 85048; 86361; 87040; 87070; 87149; 87205; 87449; 87536; 88112; 88312; 93005; 94640; 94644; 94660; 94760; 96365; 96367; 96375; A4216; J0360; J0456; J0696; J1940; J3475; J7050; J7506; J7611; J7620

== ENCOUNTER 2018-05-04 18:15 | Emergency (ER) | payer OTHER, SELFPAY ==
[2018-05-04 18:58] LABS: #Eosinphils 0.3 thou/uL (0.0-0.7); #Lymphocytes 1.3 thou/uL (1.20-3.40); #Monocytes 0.3 thou/uL (0.11-0.59); #Neutrophils 3.2 thou/uL (1.40-6.50); %Basophils 0.6 % (0.0-1.0); %Eosinophils 6.2 % (0.0-10.0); %Lymphocytes 25.2 % (21.0-51.0); %Monocytes 5.5 % (0.0-10.0); %Neutrophils 62.5 % (42.0-75.0); Hemoglobin 12.1 g/dL (12.0-16.0); Mean Corpuscular HGB CONC 33.7 g/dL (32.0-36.0); Mean Corpuscular Hemoglobin 26.7 pg (27.0-31.0); Mean Corpuscular Volume 79.2 fL (78.0-98.0); Mean Platelet Volume 7.1 fL (7.4-10.4); Platelet Count 246 thou/uL (130-400); RBC Distribution Width 13.5 % (11.5-14.5); Red Blood Cell (RBC) Count 4.53 mill/uL (4.20-5.40); White Blood Cell (WBC) Count 5.2 thou/uL (4.8-10.8)
[2018-05-04] MEDS ORDERED: methylPREDNISolone Sod Succ/PF 125 MG/2 ML VIAL ONE (19:01)
[2018-05-04 19:13] LABS: ALT (SGPT) 36 U/L (8-55); AST (SGOT) 19 U/L (5-34); Albumin 3.9 g/dL (3.5-5.0); Alkaline Phosphatase 83 U/L (40-150); Anion Gap 12 mmol/L (10-20); BUN (Urea Nitrogen) 11 mg/dL (7.0-18.7); Bilirubin, Total 0.2 mg/dL (0.2-1.2); Calc. Creatinine Clearance 0 mL/min (70-130); Calcium 9.3 mg/dL (7.8-10.44); Carbon Dioxide 25 mmol/L (22-29); Chloride 108 mmol/L (98-107); Estimated GFR-MDRD Greater than 90; Globulin 3.5 g/dL (2.4-3.5); Glucose 127 mg/dL (70-105); Potassium 3.7 mmol/L (3.5-5.1); Protein, Total 7.4 g/dL (6.0-8.3); Sodium 141 mmol/L (136-145)
[2018-05-04 19:18] LABS: CKMB 1.6 ng/mL (0-6.6); Troponin I Less than 0.010 ng/mL (< 0.028)
--- NOTE | 2018-05-04 20:46 | RAD ---
PORTABLE AP CHEST X-RAY: 05/04/2018 HISTORY: Cough since Saturday. Shortness of breath. COMPARISON: 02/24/2018 FINDINGS: The cardiac silhouette and pulmonary vasculature are within normal limits. The lungs are clear. The re has been no interval change from the prior exam. IMPRESSION: No acute cardiopulmonary process. POS: [facility]
--- NOTE | 2018-05-07 13:33 | EKG ---
Test Reason : SOB Blood Pressure : / mmHG Vent. Rate : 093 BPM Atrial Rate : 093 BPM P-R Int : 184 ms QRS Dur : 076 ms QT Int : 364 ms P-R-T Axes : 018 060 020 degrees QTc Int : 452 ms Normal sinus rhythm Normal ECG Confirmed by DULCE HINES, TAY ([id number]), restaurant expeditor DANGELO FINLEY ([id number]) on 05/07/2018 1:32:50 PM Referred By: Confirmed By:TAY CARDONA MD
== END 2018-05-04 21:28 | disposition home or self-care (01) ==
LOC: ERS 18:15
DX: J44.1 Chronic obstructive pulmonary disease with (acute) exacerbation (principal); B20 Human immunodeficiency virus [HIV] disease; E11.9 Type 2 diabetes mellitus without complications; I10 Essential (primary) hypertension; Z79.899 Other long term (current) drug therapy
CPT/HCPCS: 71045; 80053; 82553; 83880; 84484; 85025; 87040; 93005; 94640; 94760; 96374; J2930

== ENCOUNTER 2018-05-20 08:13 | Emergency (ER) | payer OTHER ==
[2018-05-20] MEDS ORDERED: methylPREDNISolone Sod Succ/PF 125 MG/2 ML VIAL ONE (08:48)
[2018-05-20 11:52] LABS: Troponin I Less than 0.010 ng/mL (< 0.028)
[2018-05-20 11:53] LABS: ALT (SGPT) 14 U/L (8-55); AST (SGOT) 11 U/L (5-34); Albumin 3.9 g/dL (3.5-5.0); Alkaline Phosphatase 72 U/L (40-150); Anion Gap 12 mmol/L (10-20); BUN (Urea Nitrogen) 11 mg/dL (7.0-18.7); Bilirubin, Total 0.3 mg/dL (0.2-1.2); CK (CPK) 77 U/L (29-168); Calc. Creatinine Clearance 0 mL/min (70-130); Calcium 9.3 mg/dL (7.8-10.44); Carbon Dioxide 24 mmol/L (22-29); Chloride 107 mmol/L (98-107); Estimated GFR-MDRD Greater than 90; Globulin 3.5 g/dL (2.4-3.5); Glucose 151 mg/dL (70-105); Potassium 3.7 mmol/L (3.5-5.1); Protein, Total 7.4 g/dL (6.0-8.3); Sodium 139 mmol/L (136-145)
[2018-05-20 12:51] LABS: #Eosinphils 0.3 thou/uL (0.0-0.7); #Lymphocytes 1.3 thou/uL (1.20-3.40); #Monocytes 0.2 thou/uL (0.11-0.59); #Neutrophils 4.3 thou/uL (1.40-6.50); %Basophils 0.5 % (0.0-1.0); %Eosinophils 5.6 % (0.0-10.0); %Lymphocytes 20.2 % (21.0-51.0); %Monocytes 3.9 % (0.0-10.0); %Neutrophils 69.8 % (42.0-75.0); Hemoglobin 11.7 g/dL (12.0-16.0); Mean Corpuscular HGB CONC 32.6 g/dL (32.0-36.0); Mean Corpuscular Hemoglobin 25.9 pg (27.0-31.0); Mean Corpuscular Volume 79.4 fL (78.0-98.0); Mean Platelet Volume 7.7 fL (7.4-10.4); Platelet Count 227 thou/uL (130-400); RBC Distribution Width 14.4 % (11.5-14.5); Red Blood Cell (RBC) Count 4.53 mill/uL (4.20-5.40); White Blood Cell (WBC) Count 6.2 thou/uL (4.8-10.8)
--- NOTE | 2018-05-20 14:06 | RAD ---
CHEST ONE VIEW: HISTORY: Asthma. COMPARISON: None. FINDINGS: A portable upright chest demonstrates a normal cardiac silhouette. The pulmonary vessels and hilum a re normal. The costophrenic angles are clear. No consolidation or mass. No pneumothorax or osseous abnormalities. IMPRESSION: Limited evaluation due to portable technique. No acute cardiopulmonary process. The results of the study were discussed with the nurse practitioner, Lorena Mo, in the ER, on 05/20, at 11:35 a.m. CODE LYNN POS: [facility]
== END 2018-05-20 12:37 | disposition home or self-care (01) ==
LOC: ERS 08:13
DX: J45.901 Unspecified asthma with (acute) exacerbation (principal); E11.9 Type 2 diabetes mellitus without complications; I10 Essential (primary) hypertension; B20 Human immunodeficiency virus [HIV] disease; Z79.899 Other long term (current) drug therapy
CPT/HCPCS: 71045; 80053; 82550; 82553; 83880; 84484; 85025; 93005; 94640; J2930; J7620

== ENCOUNTER 2018-08-05 11:55 | Emergency (ER) | payer OTHER ==
[2018-08-05 12:42] LABS: #Eosinphils 0.2 thou/uL (0.0-0.7); #Lymphocytes 1.3 thou/uL (1.20-3.40); #Monocytes 0.3 thou/uL (0.11-0.59); %Basophils 0.9 % (0.0-1.0); %Eosinophils 3.8 % (0.0-10.0); %Lymphocytes 27.7 % (21.0-51.0); %Monocytes 5.8 % (0.0-10.0); %Neutrophils 61.8 % (42.0-75.0); Mean Corpuscular HGB CONC 33.3 g/dL (32.0-36.0); Mean Corpuscular Hemoglobin 26.6 pg (27.0-31.0); Mean Corpuscular Volume 79.8 fL (78.0-98.0); Mean Platelet Volume 7.6 fL (7.4-10.4); Platelet Count 275 thou/uL (130-400); RBC Distribution Width 13.8 % (11.5-14.5); Red Blood Cell (RBC) Count 4.88 mill/uL (4.20-5.40); White Blood Cell (WBC) Count 4.8 thou/uL (4.8-10.8)
[2018-08-05 12:57] LABS: ALT (SGPT) 23 U/L (8-55); AST (SGOT) 16 U/L (5-34); Albumin 4.2 g/dL (3.5-5.0); Alkaline Phosphatase 78 U/L (40-150); Anion Gap 15 mmol/L (10-20); BUN (Urea Nitrogen) 18 mg/dL (7.0-18.7); Bilirubin, Total 0.2 mg/dL (0.2-1.2); Calc. Creatinine Clearance 0 mL/min (70-130); Calcium 10.1 mg/dL (7.8-10.44); Carbon Dioxide 25 mmol/L (22-29); Chloride 104 mmol/L (98-107); Estimated GFR-MDRD 73; Globulin 3.9 g/dL (2.4-3.5); Glucose 103 mg/dL (70-105); Potassium 3.8 mmol/L (3.5-5.1); Protein, Total 8.1 g/dL (6.0-8.3); Sodium 140 mmol/L (136-145); Troponin I Less than 0.010 ng/mL (< 0.028)
--- NOTE | 2018-08-05 13:18 | RAD ---
CHEST 1 VIEW: Date: 08/05/18 INDICATION: History of chest pain last night. COMPARISON: Prior exam dated 05/20/18. FINDINGS: Lungs are clear. Cardiomediastinal silhouette is within normal limits. No acute osseous abnormality i s evident. IMPRESSION: No acute abnormality. POS: [facility]
[2018-08-05] MEDS ORDERED: predniSONE 20 MG TAB ONE (13:59)
[2018-08-05] MEDS ORDERED: Mag-Al 1200 mg/1200 mg/30 ML UDCUP ONE (13:59)
[2018-08-05] MEDS ORDERED: Lidocaine Viscous Sol 2% 15 ml UD Cup ONE (13:59)
== END 2018-08-05 14:45 | disposition home or self-care (01) ==
LOC: ERS 11:55
DX: J45.901 Unspecified asthma with (acute) exacerbation (principal); K21.9 Gastro-esophageal reflux disease without esophagitis; E11.9 Type 2 diabetes mellitus without complications; I10 Essential (primary) hypertension; B20 Human immunodeficiency virus [HIV] disease
CPT/HCPCS: 71045; 80053; 84484; 85025; 85379; 93005; 94640; J7506; J7620

== ENCOUNTER 2018-10-23 19:44 | Emergency (ER) | payer OTHER ==
[2018-10-23] MEDS ORDERED: Albuterol Sulfate 2.5 mg/3 ml Neb ONE (20:24)
--- NOTE | 2018-10-23 20:45 | RAD ---
PORTABLE CHEST: HISTORY: Shortness of breath. COMPARISON: 08/05/2018 FINDINGS: Heart size and mediastinum are within normal limits. Lungs are clear of infiltrates. No interval ch mohit since the prior exam. IMPRESSION: Stable chest. POS: [facility]
[2018-10-23] MEDS ORDERED: Magnesium 2 GM/50 ML BAG (IN WATER) ONE (20:58)
[2018-10-23] MEDS ORDERED: Dexamethasone 10 MG/ML VIAL ONE (20:58)
== END 2018-10-23 22:06 | disposition home or self-care (01) ==
LOC: ERS 19:44
DX: J45.901 Unspecified asthma with (acute) exacerbation (principal); E11.9 Type 2 diabetes mellitus without complications; I10 Essential (primary) hypertension; B20 Human immunodeficiency virus [HIV] disease; Z79.51 Long term (current) use of inhaled steroids; Z79.899 Other long term (current) drug therapy
CPT/HCPCS: 71045; 93005; 94640; 96365; 96375; J1100; J3475; J7611; J7620

== ENCOUNTER 2019-10-14 11:40 | Emergency (ER) | payer OTHER ==
[2019-10-14] MEDS ORDERED: Dexamethasone 10 MG/ML VIAL ONE (13:43)
[2019-10-14] MEDS ORDERED: Ketorolac Tromethamine 60 MG/2 ML VIAL ONE (13:43)
== END 2019-10-14 15:53 | disposition home or self-care (01) ==
LOC: ERS 11:40
DX: J02.9 Acute pharyngitis, unspecified (principal); E11.9 Type 2 diabetes mellitus without complications; I10 Essential (primary) hypertension; J44.9 Chronic obstructive pulmonary disease, unspecified; B20 Human immunodeficiency virus [HIV] disease; Z79.51 Long term (current) use of inhaled steroids; Z79.899 Other long term (current) drug therapy; Z79.84 Long term (current) use of oral hypoglycemic drugs
CPT/HCPCS: 87081; 87430; 87804; 96372; 99283; J1100; J1885

== ENCOUNTER 2021-08-22 16:01 | Emergency (ER) | payer OTHER | END 2021-08-22 21:46 | disposition left against medical advice (07) | LOC: ERS 16:01 | DX: Z53.21 Procedure and treatment not carried out due to patient leaving prior to being seen by health care provider (principal) ==

== ENCOUNTER 2021-08-22 22:07 | Emergency (ER) | payer OTHER ==
[2021-08-22] MEDS ORDERED: Albuterol Sulfate 2.5 mg/0.5 ml Neb ONE ×2 (22:57→22:58)
[2021-08-22] MEDS ORDERED: Ipratropium Bromide 2.5 ml Neb ONE (22:57)
[2021-08-22] MEDS ORDERED: predniSONE 20 MG TAB ONE (22:57)
[2021-08-23 00:35] LABS: SARS-CoV-2 NAA Rapid Test Not Detected (NotDetected)
== END 2021-08-23 00:13 | disposition home or self-care (01) ==
LOC: ERS 22:07
DX: J45.901 Unspecified asthma with (acute) exacerbation (principal); I10 Essential (primary) hypertension; Z20.822 Contact with and (suspected) exposure to COVID-19
CPT/HCPCS: 0240U; J7512; J7611

== ENCOUNTER 2022-01-04 18:31 | Emergency (ER) | payer OTHER ==
[2022-01-04] MEDS ORDERED: Ketorolac Tromethamine 30 MG/ML VIAL ONE (19:59)
== END 2022-01-04 21:15 | disposition home or self-care (01) ==
LOC: ERS 18:31
DX: K02.9 Dental caries, unspecified (principal); I10 Essential (primary) hypertension; B20 Human immunodeficiency virus [HIV] disease; J44.9 Chronic obstructive pulmonary disease, unspecified; Z79.899 Other long term (current) drug therapy
CPT/HCPCS: 70486; 96372; J1885

== ENCOUNTER 2022-05-19 11:08 | Observation (INO) | payer OTHER ==
[2022-05-19] MEDS ORDERED: Meclizine HCl 25 MG TAB ONE (12:10)
[2022-05-19] MEDS ORDERED: Ketorolac Tromethamine 30 MG/ML VIAL ONE (12:10)
[2022-05-19] MEDS ORDERED: Acetaminophen 500 MG TAB ONE (12:10)
[2022-05-19] MEDS ORDERED: Metoclopramide HCl 10 MG/2 ML VIAL ONE (12:10)
[2022-05-19 12:41] LABS: #Lymphocytes 0.7 thou/uL (1.20-3.40); #Monocytes 0.1 thou/uL (0.11-0.59); %Basophils 0.3 % (0.0-1.0); %Lymphocytes 13.5 % (21.0-51.0); %Monocytes 2.5 % (0.0-10.0); %Neutrophils 82.8 % (42.0-75.0); Hemoglobin 9.4 g/dL (12.0-16.0); Mean Corpuscular HGB CONC 32.1 g/dL (32.0-36.0); Mean Corpuscular Hemoglobin 23.5 pg (27.0-31.0); Mean Platelet Volume 9.6 fL (7.4-10.4); Platelet Count 269 thou/uL (130-400); Red Blood Cell (RBC) Count 4.01 mill/uL (4.20-5.40); White Blood Cell (WBC) Count 4.8 thou/uL (4.8-10.8)
[2022-05-19 12:53] LABS: ALT (SGPT) 12 U/L (8-55); AST (SGOT) 14 U/L (5-34); Acetaminophen Less than 10.0 mcg/mL (10.0-30.0); Alcohol Less than 10 mg/dL (Less than 10); Alkaline Phosphatase 70 U/L (40-110); Anion Gap 14 mmol/L (10-20); BUN (Urea Nitrogen) 9 mg/dL (7.0-18.7); Bilirubin, Total 0.3 mg/dL (0.2-1.2); Calc. Creatinine Clearance 0 mL/min (70-130); Calcium 8.8 mg/dL (7.8-10.44); Carbon Dioxide 21 mmol/L (22-29); Chloride 107 mmol/L (98-107); Estimated GFR 95; Globulin 3.4 g/dL (2.4-3.5); Glucose 216 mg/dL (70-105); Potassium 3.1 mmol/L (3.5-5.1); Protein, Total 7.4 g/dL (6.0-8.3); Salicylate Less than 8.0 mg/dL (15.0-30.0); Sodium 139 mmol/L (136-145)
[2022-05-19 12:54] LABS: MDiff Complete? YES; Microcytosis SLIGHT = 6-15 cells (100X) (0-5/hpf); Platelet Morphology Comment Appears Adequate; Polychromasia SLIGHT = 2-3 cells (100X) (0-2/hpf)
[2022-05-19 12:57] LABS: Bacteria/HPF 2+ HPF (None Seen); Bilirubin Negative (Negative); Blood, Urine 3+ (Negative); Glucose, Urine (Dipstick) 150 mg/dL (Negative); Ketone, Urine 20 mg/dL (Negative); Leukocyte 25 Leu/uL (Negative); Nitrite 1+ (Negative); Pregnancy Test - Urine (BHCG) Negative (Negative); Pregu Control Background? CLEAR/WHITE (CLR/WHITE); Pregu Control Bar Appear? YES (CONTROL BAR); Protein, Urine (Dipstick) 50 mg/dL (Neg-Trace); RBC/HPF Greater than 50 HPF (0-3); Specific Gravity 1.019 (1.002-1.036); Specific Gravity, Urine 1.019 (1.002-1.036); Squamous Epithelial 0-3 HPF (0-3); Urobilinogen Normal mg/dL (Less than 2)
[2022-05-19 12:58] LABS: Clarity Cloudy (Clear)
[2022-05-19] MEDS ORDERED: cefTRIAXone\\ROCEPHIN 1 GM VIAL ONE (13:26)
[2022-05-19] MEDS ORDERED: methylPREDNISolone Sod Succ/PF 125 MG/2 ML VIAL ONE (13:53)
[2022-05-19 14:34] LABS: Amphetamine Not Detected (NotDetected); Barbiturates Screen Not Detected (NotDetected); Benzodiazepine Screen Not Detected (NotDetected); Cocaine Metabolite Screen Not Detected (NotDetected); Methadone Not Detected (NotDetected); Methamphetamine Not Detected (NotDetected); Opiate Screen Not Detected (NotDetected); Oxycodone Screen Not Detected (NotDetected); Phencyclidine (PCP) Not Detected (NotDetected); THC/Cannabinoid Screen Not Detected (NotDetected); Tricyclic Screen Not Detected (NotDetected)
[2022-05-19] MEDS ORDERED: Ondansetron PF 4 MG/2 ML Vial ONE (14:36)
[2022-05-19] MEDS ORDERED: Benzonatate 100 MG CAP PO PRN (14:40)
[2022-05-19] MEDS ORDERED: Ondansetron PF 4 MG/2 ML Vial IVP PRN (14:42)
[2022-05-19] MEDS ORDERED: Senokot S 8.6-50 MG TAB PO PRN (14:42)
[2022-05-19] MEDS ORDERED: Ondansetron ODT 4 MG TAB PO PRN (14:42)
[2022-05-19] MEDS ORDERED: Acetaminophen 325 MG TAB PO PRN (14:42)
[2022-05-19 15:27] LABS: Lactic Acid 2.4 mmol/L (0.5-2.2)
[2022-05-19 15:28] LABS: Hemoglobin A1c 5.8 % (4.0-6.0)
[2022-05-19] MEDS ORDERED: Potassium Chloride 20 MEQ TAB PO SCH (15:30)
[2022-05-19 15:31] LABS: Magnesium 1.8 mg/dL (1.6-2.6)
[2022-05-19 15:48] VITALS: BMI 55.2
[2022-05-19] MEDS ORDERED: cefTRIAXone\\ROCEPHIN 1 GM in Sodium Chloride 0.9% 100 ML IVPB SCH (16:00)
[2022-05-19] MEDS: Sodium Chloride 0.9% 1,000 ML IV SCH ×2 (16:04→19:03)
[2022-05-19] MEDS ORDERED: Labetalol HCl 100 MG/20 ML VIAL SLOW IVP PRN (16:18)
[2022-05-19] MEDS: Mometasone 100 MCG/Formoterol 5 MCG 120 PUFF INHALER INH SCH (18:31)
[2022-05-19 18:50] LABS: SARS-CoV-2 NAA Rapid Test Not Detected (NotDetected)
[2022-05-19] MEDS: Famotidine 20 MG TAB PO SCH (20:45)
[2022-05-19] MEDS ORDERED: Enoxaparin Sodium 40 MG/0.4 ML SYRINGE SC SCH (21:00)
[2022-05-20 04:55] LABS: #Lymphocytes 0.7 thou/uL (1.20-3.40); #Monocytes 0.2 thou/uL (0.11-0.59); #Neutrophils 3.8 thou/uL (1.40-6.50); %Basophils 0.1 % (0.0-1.0); %Lymphocytes 15.1 % (21.0-51.0); %Monocytes 3.6 % (0.0-10.0); %Neutrophils 81.2 % (42.0-75.0); Hemoglobin 8.7 g/dL (12.0-16.0); Mean Corpuscular HGB CONC 31.4 g/dL (32.0-36.0); Mean Corpuscular Volume 73.4 fL (78.0-98.0); Mean Platelet Volume 9.3 fL (7.4-10.4); Platelet Count 255 thou/uL (130-400); Red Blood Cell (RBC) Count 3.75 mill/uL (4.20-5.40); White Blood Cell (WBC) Count 4.7 thou/uL (4.8-10.8)
[2022-05-20 05:17] LABS: Anion Gap 10 mmol/L (10-20); BUN (Urea Nitrogen) 10 mg/dL (7.0-18.7); Calc. Creatinine Clearance 256 mL/min (70-130); Calcium 8.9 mg/dL (7.8-10.44); Carbon Dioxide 23 mmol/L (22-29); Chloride 112 mmol/L (98-107); Estimated GFR 108; Glucose 115 mg/dL (70-105); Iron 20 ug/dL (50-170); Iron Binding Capacity, Total 323 mcg/dL (265-497); Potassium 4.2 mmol/L (3.5-5.1); Sodium 141 mmol/L (136-145); Transferrin, Serum 258 mg/dL (180-382)
[2022-05-20] MEDS: Mometasone 100 MCG/Formoterol 5 MCG 120 PUFF INHALER INH SCH (06:41)
[2022-05-20] MEDS ORDERED: (Elviteg/Cob/Emtri/Tenof Alafen [Genvoya Tablet] 1 EACH Tablet) PO SCH (08:00)
[2022-05-20] MEDS: Famotidine 20 MG TAB PO SCH (08:07)
[2022-05-20] MEDS ORDERED: Amlodipine 10 MG TAB PO SCH (09:00)
[2022-05-20 12:35] VITALS: BP 170/89; TEMP 97.7
[2022-05-20] MEDS ORDERED: cefTRIAXone\\ROCEPHIN 2 GM in Sodium Chloride 0.9% 100 ML IVPB SCH (13:00)
[2022-05-20] MEDS ORDERED: methylPREDNISolone Sod Succ 40 MG VIAL IVP SCH (14:00)
[2022-05-21] MEDS ORDERED: Losartan 25 MG TAB PO SCH (09:00)
== END 2022-05-20 16:20 | disposition home or self-care (01) ==
LOC: ERS 11:08 → 2SW 14:05
PROVIDERS: ADMIT Hospitalist; ATTEND Hospitalist
DX: H81.10 Benign paroxysmal vertigo, unspecified ear (principal); I10 Essential (primary) hypertension; N39.0 Urinary tract infection, site not specified; E87.2 Acidosis; D50.9 Iron deficiency anemia, unspecified; E87.6 Hypokalemia; R73.9 Hyperglycemia, unspecified; E66.01 Morbid (severe) obesity due to excess calories; Z68.43 Body mass index [BMI] 50.0-59.9, adult; Z21 Asymptomatic human immunodeficiency virus [HIV] infection status; Z79.899 Other long term (current) drug therapy; Z88.0 Allergy status to penicillin; Z20.822 Contact with and (suspected) exposure to COVID-19; W18.30XA Fall on same level, unspecified, initial encounter; Y92.009 Unspecified place in unspecified non-institutional (private) residence as the place of occurrence of the external cause
CPT/HCPCS: 36415; 70450; 71045; 80048; 80053; 80306; 80307; 81003; 81015; 81025; 83036; 83540; 83550; 83605; 83735; 84466; 84484; 85025; 87040; 87086; 93005; 94640; J0696; J1650; J1885; J2405; J2765; J2930; J3490; J7050; J7620; U0002

== ENCOUNTER 2022-08-27 15:12 | Emergency (ER) | payer OTHER | END 2022-08-27 17:27 | disposition home or self-care (01) | LOC: ERS 15:12 | DX: L02.413 Cutaneous abscess of right upper limb (principal); I10 Essential (primary) hypertension; J44.9 Chronic obstructive pulmonary disease, unspecified | CPT/HCPCS: 87070; 87077; 87186; 87205; 99283 ==

== ENCOUNTER 2022-10-18 23:57 | Emergency (ER) | payer OTHER ==
[2022-10-19 01:36] LABS: Hemoglobin 9.2 g/dL (12.0-16.0); Mean Corpuscular HGB CONC 32.3 g/dL (32.0-36.0); Mean Corpuscular Hemoglobin 22.5 pg (27.0-31.0); Mean Corpuscular Volume 69.8 fl (78.0-98.0); Mean Platelet Volume 6.1 fL (7.4-10.4); Platelet Count 141 10x3/uL (130-400); RBC Distribution Width 16.5 % (11.5-14.5); Red Blood Cell (RBC) Count 4.07 mill/uL (4.20-5.40); White Blood Cell (WBC) Count 5.5 10x3/uL (4.8-10.8)
[2022-10-19 01:55] LABS: ALT (SGPT) Less than 7 U/L (8-55); AST (SGOT) 11 U/L (5-34); Albumin 3.8 g/dL (3.5-5.0); Alkaline Phosphatase 72 U/L (40-110); Anion Gap 14 mmol/L (10-20); BUN (Urea Nitrogen) 10 mg/dL (7.0-18.7); Bilirubin, Total 0.2 mg/dL (0.2-1.2); Calc. Creatinine Clearance 0 mL/min (70-130); Calcium 9.3 mg/dL (7.8-10.44); Carbon Dioxide 24 mmol/L (22-29); Chloride 107 mmol/L (98-107); Estimated GFR 96; Globulin 3.3 g/dL (2.4-3.5); Glucose 122 mg/dL (70-105); Potassium 3.6 mmol/L (3.5-5.1); Protein, Total 7.1 g/dL (6.0-8.3); Sodium 141 mmol/L (136-145)
[2022-10-19 01:58] LABS: #Eosinphils 0.1 thou/uL (0.0-0.7); #Lymphocytes 1.1 thou/uL (1.20-3.40); #Monocytes 0.4 thou/uL (0.11-0.59); #Neutrophils 3.9 thou/uL (1.40-6.50); %Basophils 0.1 % (0.0-1.0); %Eosinophils 2.3 % (0.0-10.0); %Lymphocytes 20.6 % (21.0-51.0); %Monocytes 6.4 % (0.0-10.0); %Neutrophils 70.5 % (42.0-75.0); Anisocytosis SLIGHT = 6-15 cells (100X) (0-5/hpf); Hypochromia SLIGHT = 6-15 cells (100X) (0-5/hpf); MDiff Complete? YES; Microcytosis SLIGHT = 6-15 cells (100X) (0-5/hpf); Platelet Morphology Comment Appears Adequate; Polychromasia SLIGHT = 2-3 cells (100X) (0-2/hpf)
[2022-10-19] MEDS ORDERED: Lidocaine 1% MPF 2 ML VIAL ONE (02:40)
[2022-10-19] MEDS ORDERED: Bupivacaine PF 0.5% 30 ML VIAL SC SCH (02:45)
== END 2022-10-19 03:10 | disposition home or self-care (01) ==
LOC: ERS 23:57
DX: L02.413 Cutaneous abscess of right upper limb (principal); L03.113 Cellulitis of right upper limb; B20 Human immunodeficiency virus [HIV] disease; J44.9 Chronic obstructive pulmonary disease, unspecified; I10 Essential (primary) hypertension
CPT/HCPCS: 10060; 36415; 80053; 85025; S0020

== ENCOUNTER 2022-10-27 15:04 | Emergency (ER) | payer OTHER | END 2022-10-27 15:39 | disposition home or self-care (01) | LOC: ERS 15:04 | DX: B37.0 Candidal stomatitis (principal); B20 Human immunodeficiency virus [HIV] disease | CPT/HCPCS: 99282 ==

== ENCOUNTER 2023-01-06 16:16 | Inpatient (IN) | payer OTHER ==
[2023-01-06] MEDS ORDERED: cefTRIAXone (ROCEPHIN) 2 GM VIAL ONE (17:14)
[2023-01-06] MEDS ORDERED: Acetaminophen 500 MG TAB ONE (17:16)
[2023-01-06] MEDS ORDERED: Vancomycin 1 GM/200 ML (FROZEN) BAG ONE (17:16)
[2023-01-06] MEDS ORDERED: Cefepime 2 GM VIAL ONE (17:16)
[2023-01-06] MEDS ORDERED: Ondansetron PF 4 MG/2 ML Vial ONE ×2 (17:16→20:10)
[2023-01-06] MEDS ORDERED: Vancomycin HCl 500 MG VIAL ONE (17:16)
[2023-01-06 17:38] LABS: Hemoglobin 9.9 g/dL (12.0-16.0); Mean Corpuscular HGB CONC 33.5 g/dL (32.0-36.0); Mean Corpuscular Hemoglobin 22.9 pg (27.0-31.0); Mean Corpuscular Volume 68.5 fl (78.0-98.0); Mean Platelet Volume 6.4 fL (7.4-10.4); Platelet Count 167 10x3/uL (130-400); RBC Distribution Width 15.7 % (11.5-14.5); Red Blood Cell (RBC) Count 4.31 mill/uL (4.20-5.40); White Blood Cell (WBC) Count 10.6 10x3/uL (4.8-10.8)
[2023-01-06 17:47] LABS: BHCG - Serum Negative (NEGATIVE); Pregs Control Background? CLEAR/WHITE (CLR/WHITE); Pregs Control Bar Appear? YES (CONTROL BAR)
[2023-01-06 17:56] LABS: ALT (SGPT) 24 U/L (8-55); AST (SGOT) 35 U/L (5-34); Albumin 3.9 g/dL (3.5-5.0); Alkaline Phosphatase 66 U/L (40-110); Anion Gap 17 mmol/L (10-20); BUN (Urea Nitrogen) 17 mg/dL (7.0-18.7); Bilirubin, Total 0.5 mg/dL (0.2-1.2); Calc. Creatinine Clearance 0 mL/min (70-130); Calcium 8.7 mg/dL (7.8-10.44); Carbon Dioxide 15 mmol/L (22-29); Chloride 106 mmol/L (98-107); Estimated GFR 30; Globulin 3.6 g/dL (2.4-3.5); Glucose 117 mg/dL (70-105); Lipase 59 U/L (8-78); Magnesium 1.9 mg/dL (1.6-2.6); Potassium 3.7 mmol/L (3.5-5.1); Protein, Total 7.5 g/dL (6.0-8.3); Sodium 134 mmol/L (136-145)
[2023-01-06 18:17] LABS: Anisocytosis SLIGHT = 6-15 cells (100X) (0-5/hpf); Band 16 % (5-11); Hypochromia SLIGHT = 6-15 cells (100X) (0-5/hpf); Lymphocytes 7 % (21-51); MDiff Complete? YES; Microcytosis SLIGHT = 6-15 cells (100X) (0-5/hpf); Monocytes 8 % (0-10); Neutrophil 69 % (42-75); Platelet Morphology Comment Appears Adequate; Polychromasia SLIGHT = 2-3 cells (100X) (0-2/hpf)
[2023-01-06 18:57] LABS: SARS-CoV-2 NAA Rapid Test Not Detected (NotDetected)
[2023-01-06] MEDS ORDERED: Fluconazole 100 MG TAB PO SCH (19:45)
[2023-01-06 20:28] LABS: Bilirubin Small (Negative); Blood, Urine Small (Negative); Glucose, Urine (Dipstick) 100 mg/dL (Negative); Ketone, Urine 15 mg/dL (Negative); Leukocyte Negative (Negative); Nitrite Negative (Negative); Protein, Urine (Dipstick) Negative (Neg-Trace); Specific Gravity, Urine 1.025 (1.005-1.030); Urobilinogen 0.2 mg/dL (Less than 2)
[2023-01-06 20:29] LABS: Clarity Hazy (Clear)
[2023-01-06 20:30] LABS: Bacteria/HPF 3+ HPF (None Seen); Other Microscopic Description Less than 2 mL rec'd; RBC/HPF 0-3 HPF (0-3); Squamous Epithelial 0-3 HPF (0-3); WBC/HPF 0-3 HPF (0-3)
[2023-01-06 20:31] LABS: Mucous/LPF Rare LPF (<2+)
[2023-01-06] MEDS ORDERED: Promethazine HCl 12.5 MG in Sodium Chloride 0.9% 50 ML IVPB SCH (20:45)
[2023-01-06] MEDS ORDERED: Ondansetron PF 4 MG/2 ML Vial IVP PRN (22:11)
[2023-01-06] MEDS ORDERED: HYDROcodone/Acetaminophen 5/325 mg Tablet PO PRN (22:11)
[2023-01-06] MEDS: Sodium Chloride 0.9% 1,000 ML IV SCH (23:50)
[2023-01-07 01:43] VITALS: BMI 40.8
[2023-01-07] MEDS ORDERED: Acetaminophen 325 MG TAB PO SCH (02:45)
[2023-01-07] MEDS ORDERED: Acetaminophen 325 MG TAB ONE ×2 (02:46)
[2023-01-07] MEDS ORDERED: cefTRIAXone (ROCEPHIN) 1 GM VIAL ONE (04:32)
[2023-01-07] MEDS ORDERED: Cefepime 1 GM VIAL ONE (04:34)
[2023-01-07] MEDS ORDERED: Cefepime 1 GM in Sodium Chloride 0.9% 100 ML IVPB SCH (05:00)
[2023-01-07] MEDS: Sodium Chloride 0.9% 1,000 ML IV SCH ×2 (05:39→14:50)
[2023-01-07 07:38] LABS: #Lymphocytes 0.8 thou/uL (1.20-3.40); #Monocytes 0.9 thou/uL (0.11-0.59); #Neutrophils 7.8 thou/uL (1.40-6.50); %Basophils 0.2 % (0.0-1.0); %Eosinophils 0.2 % (0.0-10.0); %Lymphocytes 8.3 % (21.0-51.0); %Monocytes 9.1 % (0.0-10.0); %Neutrophils 82.2 % (42.0-75.0); Hemoglobin 8.8 g/dL (12.0-16.0); Mean Corpuscular Volume 68.9 fl (78.0-98.0); Mean Platelet Volume 7.2 fL (7.4-10.4); Platelet Count 134 10x3/uL (130-400); White Blood Cell (WBC) Count 9.5 10x3/uL (4.8-10.8)
[2023-01-07 07:53] LABS: ALT (SGPT) 24 U/L (8-55); AST (SGOT) 36 U/L (5-34); Albumin 3.4 g/dL (3.5-5.0); Alkaline Phosphatase 60 U/L (40-110); Anion Gap 14 mmol/L (10-20); BUN (Urea Nitrogen) 21 mg/dL (7.0-18.7); Bilirubin, Total 0.4 mg/dL (0.2-1.2); Calc. Creatinine Clearance 85 mL/min (70-130); Calcium 8.3 mg/dL (7.8-10.44); Carbon Dioxide 17 mmol/L (22-29); Chloride 109 mmol/L (98-107); Estimated GFR 42; Globulin 3.6 g/dL (2.4-3.5); Glucose 113 mg/dL (70-105); Potassium 3.7 mmol/L (3.5-5.1); Sodium 136 mmol/L (136-145)
[2023-01-07 08:10] LABS: Band 24 % (5-11); Hypochromia SLIGHT = 6-15 cells (100X) (0-5/hpf); Lymphocytes 10 % (21-51); MDiff Complete? YES; Microcytosis MODERATE=15-30 cells (100X) (0-5/hpf); Monocytes 3 % (0-10); Neutrophil 62 % (42-75); Platelet Morphology Comment Appears Adequate; Polychromasia SLIGHT = 2-3 cells (100X) (0-2/hpf); Reactive Lymphocytes 1 % (0-10)
[2023-01-07] MEDS ORDERED: Cefepime 1 MG in Syringe 0 ML IVPB SCH (09:00)
[2023-01-07] MEDS ORDERED: Vancomycin 1 GM in Premix Bag 1 BAG IVPB SCH (09:00)
[2023-01-07] MEDS ORDERED: Calcium Carbonate 500 MG ChewTAB PO PRN (12:17)
[2023-01-07] MEDS ORDERED: Doxycycline 100 MG CAP PO SCH (12:30)
[2023-01-07] MEDS ORDERED: Electrolyte Replacement Protocol 1 EACH FS SCH (12:30)
[2023-01-07 13:30] LABS: Phosphorus 2.3 mg/dL (2.3-4.7)
[2023-01-07 13:31] LABS: Anion Gap 14 mmol/L (10-20); BUN (Urea Nitrogen) 22 mg/dL (7.0-18.7); CRP (Inflammatory) 23.19 mg/dL (= or < 0.5); Calc. Creatinine Clearance 82 mL/min (70-130); Calcium 8.5 mg/dL (7.8-10.44); Carbon Dioxide 17 mmol/L (22-29); Chloride 107 mmol/L (98-107); Estimated GFR 40; Glucose 101 mg/dL (70-105); Magnesium 1.8 mg/dL (1.6-2.6); Potassium 3.5 mmol/L (3.5-5.1); Sodium 134 mmol/L (136-145)
[2023-01-07 13:32] LABS: Troponin I Less than 0.010 ng/mL (< 0.028)
[2023-01-07] MEDS ORDERED: Ipratropium/Albuterol 3 ML NEB NEB PRN (15:15)
[2023-01-07 15:53] LABS: Troponin I Less than 0.010 ng/mL (< 0.028)
[2023-01-07] MEDS: Cefepime 2 GM in Sodium Chloride 0.9% 100 ML IVPB SCH (17:41)
[2023-01-07] MEDS: Lactated Ringer's 1,000 ML IV SCH ×2 (17:41→21:32)
[2023-01-07] MEDS ORDERED: Vancomycin 1.5 GRAM/300 ML BAG 1.5 GM in Premix Bag 1 BAG IVPB SCH (18:00)
[2023-01-07] MEDS: Mometasone 100 MCG/Formoterol 5 MCG 120 PUFF INHALER INH SCH (19:01)
[2023-01-07] MEDS: Acetaminophen 325 MG TAB PO PRN (21:16)
[2023-01-07] MEDS: Fluconazole In NaCl,Iso-Osm 200 MG in Premix Bag 1 BAG IVPB SCH (21:17)
[2023-01-07] MEDS: Doxycycline 100 MG CAP PO SCH (21:17)
[2023-01-07] MEDS: Famotidine 20 MG TAB PO SCH (21:17)
[2023-01-08 01:57] LABS: Legionella Urinary Ag Negative (Negative); Strep pneumo Urine Ag NEGATIVE (NEGATIVE)
[2023-01-08 04:58] LABS: #Eosinphils 0.3 thou/uL (0.0-0.7); #Lymphocytes 0.9 thou/uL (1.20-3.40); #Monocytes 0.7 thou/uL (0.11-0.59); #Neutrophils 4.1 thou/uL (1.40-6.50); %Basophils 0.5 % (0.0-1.0); %Eosinophils 4.6 % (0.0-10.0); %Lymphocytes 14.7 % (21.0-51.0); %Monocytes 11.8 % (0.0-10.0); %Neutrophils 68.4 % (42.0-75.0); Hemoglobin 7.9 g/dL (12.0-16.0); Mean Corpuscular Hemoglobin 22.4 pg (27.0-31.0); Mean Platelet Volume 10.1 fL (7.4-10.4); Platelet Count 111 10x3/uL (130-400); RBC Distribution Width 16.1 % (11.5-14.5); Red Blood Cell (RBC) Count 3.52 mill/uL (4.20-5.40)
[2023-01-08 05:18] LABS: ALT (SGPT) 47 U/L (8-55); AST (SGOT) 74 U/L (5-34); Alkaline Phosphatase 68 U/L (40-110); Anion Gap 13 mmol/L (10-20); BUN (Urea Nitrogen) 21 mg/dL (7.0-18.7); Bilirubin, Total 0.4 mg/dL (0.2-1.2); Calc. Creatinine Clearance 101 mL/min (70-130); Calcium 8.7 mg/dL (7.8-10.44); Carbon Dioxide 15 mmol/L (22-29); Chloride 112 mmol/L (98-107); Estimated GFR 52; Globulin 3.6 g/dL (2.4-3.5); Glucose 87 mg/dL (70-105); Protein, Total 6.6 g/dL (6.0-8.3); Sodium 136 mmol/L (136-145)
[2023-01-08] MEDS: Lactated Ringer's 1,000 ML IV SCH (05:27)
[2023-01-08] MEDS: Cefepime 2 GM in Sodium Chloride 0.9% 100 ML IVPB SCH ×2 (05:28→16:18)
[2023-01-08] MEDS: Mometasone 100 MCG/Formoterol 5 MCG 120 PUFF INHALER INH SCH ×2 (07:26→19:03)
[2023-01-08] MEDS ORDERED: Magnesium 2 GM/50 ML(in water) 2 GM in Premix Bag 1 BAG IVPB SCH (08:00)
[2023-01-08] MEDS ORDERED: Elviteg/Cob/Emtri/Tenof Alafen [Genvoya Tablet] PO SCH (08:00)
[2023-01-08] MEDS: Famotidine 20 MG TAB PO SCH (09:30)
[2023-01-08] MEDS: Doxycycline 100 MG CAP PO SCH (09:45)
[2023-01-08] MEDS ORDERED: Sodium Bicarbonate 150 MEQ in Dextrose 5% in Water 1,000 ML IV SCH (13:30)
[2023-01-08 13:41] LABS: Campy jejuni + coli by PCR Negative (Negative); STEC Shiga Toxin 1+2 Negative (Negative); Salmonella spp. by PCR Negative (Negative); Shigella spp + EIEC by PCR Negative (Negative)
[2023-01-08 15:39] LABS: %CD4 (Helper/Inducer) 1.3 % (30.8-58.5); Absolute CD4 12 /uL (359-1519); Lymphocytes/Gated Cell Count 0.9 x10E3/uL (0.7-3.1); Total Lymphocyte 9 % (Not Estab.); WBC Total Count 9.7 x10E3/uL (3.4-10.8)
[2023-01-08 17:39] LABS: Vancomycin, Trough 5.6 ug/mL
[2023-01-08] MEDS: Vancomycin 1 GM in Premix Bag 1 BAG IVPB SCH (18:26)
[2023-01-08] MEDS: Acetaminophen 325 MG TAB PO PRN (20:04)
[2023-01-08] MEDS: Fluconazole In NaCl,Iso-Osm 200 MG in Premix Bag 1 BAG IVPB SCH (20:05)
[2023-01-09] MEDS: Cefepime 2 GM in Sodium Chloride 0.9% 100 ML IVPB SCH (04:26)
[2023-01-09 05:38] LABS: #Eosinphils 0.4 thou/uL (0.0-0.7); #Lymphocytes 0.6 thou/uL (1.20-3.40); #Monocytes 0.4 thou/uL (0.11-0.59); #Neutrophils 2.8 thou/uL (1.40-6.50); %Eosinophils 8.7 % (0.0-10.0); %Monocytes 10.4 % (0.0-10.0); %Neutrophils 66.9 % (42.0-75.0); Hemoglobin 7.3 g/dL (12.0-16.0); Mean Corpuscular HGB CONC 32.7 g/dL (32.0-36.0); Mean Corpuscular Hemoglobin 22.5 pg (27.0-31.0); Mean Corpuscular Volume 68.7 fl (78.0-98.0); Mean Platelet Volume 7.4 fL (7.4-10.4); Platelet Count 124 10x3/uL (130-400); RBC Distribution Width 15.9 % (11.5-14.5); Red Blood Cell (RBC) Count 3.25 mill/uL (4.20-5.40); Reticulocyte Count 0.3 % (0.5-1.5); White Blood Cell (WBC) Count 4.2 10x3/uL (4.8-10.8)
[2023-01-09 05:47] LABS: ALT (SGPT) 64 U/L (8-55); AST (SGOT) 87 U/L (5-34); Albumin 3.1 g/dL (3.5-5.0); Alkaline Phosphatase 99 U/L (40-110); Anion Gap 12 mmol/L (10-20); BUN (Urea Nitrogen) 14 mg/dL (7.0-18.7); Bilirubin, Total 0.3 mg/dL (0.2-1.2); Calc. Creatinine Clearance 134 mL/min (70-130); Calcium 8.6 mg/dL (7.8-10.44); Carbon Dioxide 21 mmol/L (22-29); Chloride 109 mmol/L (98-107); Estimated GFR 73; Globulin 3.4 g/dL (2.4-3.5); Glucose 106 mg/dL (70-105); Potassium 3.2 mmol/L (3.5-5.1); Protein, Total 6.5 g/dL (6.0-8.3); Sodium 139 mmol/L (136-145)
[2023-01-09] MEDS: Vancomycin 1 GM in Premix Bag 1 BAG IVPB SCH (05:51)
[2023-01-09] MEDS: Mometasone 100 MCG/Formoterol 5 MCG 120 PUFF INHALER INH SCH ×2 (07:00→19:34)
[2023-01-09] MEDS ORDERED: Potassium Bicarbonate/Cit Ac 20 MEQ TAB PO SCH ×2 (08:00→17:00)
[2023-01-09] MEDS ORDERED: Potassium Chloride 20 MEQ in Lactated Ringer's 1,000 ML IV SCH (08:45)
[2023-01-09] MEDS: Sodium Bicarbonate Tab 325 MG TAB PO SCH ×3 (10:11→20:37)
[2023-01-09] MEDS: Nystatin Ointment 15 GM TUBE TOP SCH ×2 (10:12→20:46)
[2023-01-09] MEDS: Nystatin 500,000 UNITS/5 ML UDCUP SSW SCH ×4 (10:12→20:37)
[2023-01-09] MEDS ORDERED: Cyanocobalamin (Vitamin B-12) 1,000 MCG TAB PO SCH (11:00)
[2023-01-09] MEDS ORDERED: Folic Acid 1 MG TAB PO SCH (11:00)
[2023-01-09] MEDS: CEFAZOLIN 2 GM in Sodium Chloride 0.9% 100 ML IVPB SCH ×2 (12:29→20:46)
[2023-01-09 17:02] LABS: Ref Lab Test Ordered HIV-1 GenoSure PRIme; Reference Lab Name LABCORP
[2023-01-09] MEDS: Acetaminophen 325 MG TAB PO PRN (18:12)
[2023-01-09] MEDS: Fluconazole 100 MG TAB PO SCH (20:37)
[2023-01-10] MEDS: CEFAZOLIN 2 GM in Sodium Chloride 0.9% 100 ML IVPB SCH ×3 (03:15→20:38)
[2023-01-10 05:46] LABS: Hemoglobin 5.2 g/dL (12.0-16.0); Mean Corpuscular HGB CONC 31.7 g/dL (32.0-36.0); Mean Corpuscular Hemoglobin 21.6 pg (27.0-31.0); Mean Corpuscular Volume 68.3 fl (78.0-98.0); Mean Platelet Volume 11.5 fL (7.4-10.4); Platelet Count 173 10x3/uL (130-400); Red Blood Cell (RBC) Count 2.41 mill/uL (4.20-5.40); White Blood Cell (WBC) Count 5.4 10x3/uL (4.8-10.8)
[2023-01-10 06:01] LABS: Anion Gap 13 mmol/L (10-20); BUN (Urea Nitrogen) 10 mg/dL (7.0-18.7); Calc. Creatinine Clearance 151 mL/min (70-130); Calcium 8.6 mg/dL (7.8-10.44); Carbon Dioxide 22 mmol/L (22-29); Chloride 109 mmol/L (98-107); Estimated GFR 84; Glucose 101 mg/dL (70-105); Iron 12 ug/dL (50-170); Iron Binding Capacity, Total 186 mcg/dL (265-497); Potassium 3.4 mmol/L (3.5-5.1); Sodium 141 mmol/L (136-145)
[2023-01-10 06:04] LABS: #Eosinphils 0.4 thou/uL (0.0-0.7); #Lymphocytes 0.6 thou/uL (1.20-3.40); #Monocytes 0.5 thou/uL (0.11-0.59); #Neutrophils 3.8 thou/uL (1.40-6.50); %Basophils 0.7 % (0.0-1.0); %Eosinophils 7.8 % (0.0-10.0); %Monocytes 9.2 % (0.0-10.0); %Neutrophils 71.3 % (42.0-75.0); Hypochromia SLIGHT = 6-15 cells (100X) (0-5/hpf); MDiff Complete? YES; Microcytosis SLIGHT = 6-15 cells (100X) (0-5/hpf)
[2023-01-10] MEDS: Mometasone 100 MCG/Formoterol 5 MCG 120 PUFF INHALER INH SCH ×2 (06:43→19:06)
[2023-01-10] MEDS ORDERED: Potassium Bicarbonate/Cit Ac 20 MEQ TAB PER TUBE SCH (08:00)
[2023-01-10] MEDS: pyridOXINE 50 MG (B6) TAB PO SCH (08:25)
[2023-01-10] MEDS: Cyanocobalamin (Vitamin B-12) 1,000 MCG TAB PO SCH (08:25)
[2023-01-10] MEDS: Folic Acid 1 MG TAB PO SCH (08:25)
[2023-01-10] MEDS: Nystatin 500,000 UNITS/5 ML UDCUP SSW SCH ×4 (08:25→20:38)
[2023-01-10] MEDS: Nystatin Ointment 15 GM TUBE TOP SCH ×2 (08:25→20:39)
[2023-01-10 12:08] LABS: Hemoglobin 7.6 g/dL (12.0-16.0); Platelet Count 173 10x3/uL (130-400)
[2023-01-10 15:16] LABS: LOG10 HIV-1 RNA 4.255 (.)
[2023-01-10] MEDS: Fluconazole 100 MG TAB PO SCH (20:38)
[2023-01-11] MEDS: CEFAZOLIN 2 GM in Sodium Chloride 0.9% 100 ML IVPB SCH ×3 (04:10→20:50)
[2023-01-11 05:25] LABS: Mean Corpuscular HGB CONC 29.4 g/dL (32.0-36.0); Mean Corpuscular Volume 71.4 fl (78.0-98.0); Mean Platelet Volume 10.8 fL (7.4-10.4); Platelet Count 200 10x3/uL (130-400); RBC Distribution Width 18.1 % (11.5-14.5); Red Blood Cell (RBC) Count 3.36 mill/uL (4.20-5.40); White Blood Cell (WBC) Count 4.9 10x3/uL (4.8-10.8)
[2023-01-11 05:26] LABS: Anion Gap 15 mmol/L (10-20); BUN (Urea Nitrogen) 6 mg/dL (7.0-18.7); Calc. Creatinine Clearance 158 mL/min (70-130); Calcium 8.4 mg/dL (7.8-10.44); Carbon Dioxide 21 mmol/L (22-29); Chloride 105 mmol/L (98-107); Estimated GFR 89; Glucose 97 mg/dL (70-105); Magnesium 1.5 mg/dL (1.6-2.6); Potassium 3.5 mmol/L (3.5-5.1); Sodium 137 mmol/L (136-145)
[2023-01-11] MEDS ORDERED: Magnesium 2 GM/50 ML(in water) 2 GM in Premix Bag 1 BAG IVPB SCH (06:00)
[2023-01-11 07:33] LABS: #Eosinphils 0.4 thou/uL (0.0-0.7); #Lymphocytes 0.8 thou/uL (1.20-3.40); #Monocytes 0.4 thou/uL (0.11-0.59); #Neutrophils 3.4 thou/uL (1.40-6.50); %Basophils 0.1 % (0.0-1.0); %Eosinophils 7.1 % (0.0-10.0); %Lymphocytes 17.1 % (21.0-51.0); %Monocytes 7.5 % (0.0-10.0); %Neutrophils 68.2 % (42.0-75.0); Hypochromia SLIGHT = 6-15 cells (100X) (0-5/hpf); MDiff Complete? YES; Microcytosis MODERATE=15-30 cells (100X) (0-5/hpf); Platelet Morphology Comment Appears Adequate; Polychromasia SLIGHT = 2-3 cells (100X) (0-2/hpf)
[2023-01-11] MEDS ORDERED: Potassium Bicarbonate/Cit Ac 20 MEQ TAB PER TUBE SCH (08:00)
[2023-01-11] MEDS: Mometasone 100 MCG/Formoterol 5 MCG 120 PUFF INHALER INH SCH ×2 (08:20→19:04)
[2023-01-11] MEDS: Nystatin 500,000 UNITS/5 ML UDCUP SSW SCH ×4 (08:51→20:50)
[2023-01-11] MEDS: pyridOXINE 50 MG (B6) TAB PO SCH (08:52)
[2023-01-11] MEDS: Cyanocobalamin (Vitamin B-12) 1,000 MCG TAB PO SCH (08:52)
[2023-01-11] MEDS: Folic Acid 1 MG TAB PO SCH (08:52)
[2023-01-11] MEDS: Nystatin Ointment 15 GM TUBE TOP SCH ×2 (09:00→20:50)
[2023-01-11] MEDS ORDERED: Iron, Sodium Ferric Gluconate 125 MG in Sodium Chloride 0.9% 100 ML IVPB SCH (10:00)
[2023-01-11] MEDS: Fluconazole 100 MG TAB PO SCH (20:51)
[2023-01-12 05:06] LABS: #Eosinphils 0.4 thou/uL (0.0-0.7); #Lymphocytes 0.8 thou/uL (1.20-3.40); #Monocytes 0.3 thou/uL (0.11-0.59); #Neutrophils 2.2 thou/uL (1.40-6.50); %Basophils 0.2 % (0.0-1.0); %Eosinophils 10.1 % (0.0-10.0); %Lymphocytes 21.8 % (21.0-51.0); %Monocytes 8.4 % (0.0-10.0); %Neutrophils 59.5 % (42.0-75.0); Hemoglobin 7.7 g/dL (12.0-16.0); Mean Corpuscular HGB CONC 33.1 g/dL (32.0-36.0); Mean Corpuscular Hemoglobin 23.5 pg (27.0-31.0); Mean Corpuscular Volume 71.1 fl (78.0-98.0); Mean Platelet Volume 10.5 fL (7.4-10.4); Platelet Count 246 10x3/uL (130-400); RBC Distribution Width 18.7 % (11.5-14.5); Red Blood Cell (RBC) Count 3.28 mill/uL (4.20-5.40); White Blood Cell (WBC) Count 3.7 10x3/uL (4.8-10.8)
[2023-01-12 05:25] LABS: Anion Gap 13 mmol/L (10-20); BUN (Urea Nitrogen) 7 mg/dL (7.0-18.7); Calc. Creatinine Clearance 168 mL/min (70-130); Calcium 8.7 mg/dL (7.8-10.44); Carbon Dioxide 25 mmol/L (22-29); Chloride 105 mmol/L (98-107); Estimated GFR 96; Glucose 109 mg/dL (70-105); Potassium 3.6 mmol/L (3.5-5.1); Sodium 139 mmol/L (136-145)
[2023-01-12] MEDS: CEFAZOLIN 2 GM in Sodium Chloride 0.9% 100 ML IVPB SCH ×3 (07:04→21:05)
[2023-01-12] MEDS: Mometasone 100 MCG/Formoterol 5 MCG 120 PUFF INHALER INH SCH ×2 (08:11→19:07)
[2023-01-12] MEDS: Folic Acid 1 MG TAB PO SCH (08:27)
[2023-01-12] MEDS: Cyanocobalamin (Vitamin B-12) 1,000 MCG TAB PO SCH (08:27)
[2023-01-12] MEDS: pyridOXINE 50 MG (B6) TAB PO SCH (08:27)
[2023-01-12] MEDS: Nystatin Ointment 15 GM TUBE TOP SCH ×2 (08:27→21:05)
[2023-01-12] MEDS: Nystatin 500,000 UNITS/5 ML UDCUP SSW SCH ×4 (08:27→21:05)
[2023-01-12] MEDS: Fluconazole 100 MG TAB PO SCH (21:04)
[2023-01-12] MEDS: Acetaminophen 325 MG TAB PO PRN (21:08)
[2023-01-13] MEDS: CEFAZOLIN 2 GM in Sodium Chloride 0.9% 100 ML IVPB SCH ×3 (04:11→20:31)
[2023-01-13] MEDS: Mometasone 100 MCG/Formoterol 5 MCG 120 PUFF INHALER INH SCH ×2 (07:42→18:56)
[2023-01-13] MEDS: pyridOXINE 50 MG (B6) TAB PO SCH (08:26)
[2023-01-13] MEDS: Cyanocobalamin (Vitamin B-12) 1,000 MCG TAB PO SCH (08:26)
[2023-01-13] MEDS: Amlodipine 10 MG TAB PO SCH (08:26)
[2023-01-13] MEDS: Nystatin Ointment 15 GM TUBE TOP SCH ×2 (08:27→20:32)
[2023-01-13] MEDS: Nystatin 500,000 UNITS/5 ML UDCUP SSW SCH ×4 (08:27→20:31)
[2023-01-13] MEDS: Folic Acid 1 MG TAB PO SCH (08:27)
[2023-01-13] MEDS ORDERED: Losartan 25 MG TAB PO SCH (16:15)
[2023-01-13] MEDS ORDERED: Carvedilol 6.25 MG TAB PO SCH (17:00)
[2023-01-13] MEDS: Fluconazole 100 MG TAB PO SCH (20:31)
[2023-01-14] MEDS: CEFAZOLIN 2 GM in Sodium Chloride 0.9% 100 ML IVPB SCH ×3 (04:26→20:36)
[2023-01-14 05:05] LABS: #Eosinphils 0.2 thou/uL (0.0-0.7); #Monocytes 0.3 thou/uL (0.11-0.59); #Neutrophils 1.9 thou/uL (1.40-6.50); %Basophils 0.1 % (0.0-1.0); %Eosinophils 4.7 % (0.0-10.0); %Lymphocytes 29.4 % (21.0-51.0); %Monocytes 8.5 % (0.0-10.0); %Neutrophils 57.3 % (42.0-75.0); Hemoglobin 7.8 g/dL (12.0-16.0); Mean Corpuscular HGB CONC 30.9 g/dL (32.0-36.0); Mean Corpuscular Hemoglobin 22.3 pg (27.0-31.0); Mean Corpuscular Volume 72.2 fl (78.0-98.0); Mean Platelet Volume 9.2 fL (7.4-10.4); Platelet Count 310 10x3/uL (130-400); RBC Distribution Width 18.8 % (11.5-14.5); White Blood Cell (WBC) Count 3.4 10x3/uL (4.8-10.8)
[2023-01-14 05:26] LABS: Anion Gap 13 mmol/L (10-20); BUN (Urea Nitrogen) 6 mg/dL (7.0-18.7); Calc. Creatinine Clearance 182 mL/min (70-130); Calcium 8.6 mg/dL (7.8-10.44); Carbon Dioxide 27 mmol/L (22-29); Chloride 105 mmol/L (98-107); Estimated GFR 105; Glucose 99 mg/dL (70-105); Potassium 3.4 mmol/L (3.5-5.1); Sodium 142 mmol/L (136-145)
[2023-01-14] MEDS: Mometasone 100 MCG/Formoterol 5 MCG 120 PUFF INHALER INH SCH ×2 (08:14→19:26)
[2023-01-14] MEDS: Losartan 25 MG TAB PO SCH (09:01)
[2023-01-14] MEDS: Amlodipine 10 MG TAB PO SCH (09:02)
[2023-01-14] MEDS: Potassium Chloride 20 MEQ in Premix Bag 1 BAG IVPB SCH ×2 (09:02→10:49)
[2023-01-14] MEDS: Cyanocobalamin (Vitamin B-12) 1,000 MCG TAB PO SCH ×3 (09:02→10:53)
[2023-01-14] MEDS: pyridOXINE 50 MG (B6) TAB PO SCH ×3 (09:03→10:54)
[2023-01-14] MEDS: Nystatin 500,000 UNITS/5 ML UDCUP SSW SCH ×5 (09:03→20:36)
[2023-01-14] MEDS: Folic Acid 1 MG TAB PO SCH ×3 (09:03→10:53)
[2023-01-14] MEDS: Nystatin Ointment 15 GM TUBE TOP SCH ×2 (09:03→20:36)
[2023-01-14] MEDS ORDERED: Fentanyl 250 MCG/5 ML VIAL ONE (09:08)
[2023-01-14] MEDS ORDERED: PROPOFOL 200 MG/20 ML VIAL ONE (09:53)
[2023-01-14] MEDS ORDERED: Lidocaine 1% PF 5 ML VIAL ONE (09:53)
[2023-01-14] MEDS ORDERED: Potassium Chloride 20 MEQ in Premix Bag 1 BAG IVPB SCH (13:00)
[2023-01-14 17:37] LABS: Potassium 3.8 mmol/L (3.5-5.1)
[2023-01-14] MEDS: Fluconazole 100 MG TAB PO SCH (20:36)
[2023-01-15] MEDS: CEFAZOLIN 2 GM in Sodium Chloride 0.9% 100 ML IVPB SCH ×3 (03:09→19:53)
[2023-01-15 05:20] LABS: #Eosinphils 0.1 thou/uL (0.0-0.7); #Monocytes 0.3 thou/uL (0.11-0.59); %Basophils 0.3 % (0.0-1.0); %Eosinophils 4.1 % (0.0-10.0); %Lymphocytes 26.6 % (21.0-51.0); %Monocytes 7.7 % (0.0-10.0); %Neutrophils 59.8 % (42.0-75.0); Hemoglobin 7.9 g/dL (12.0-16.0); Mean Corpuscular HGB CONC 29.9 g/dL (32.0-36.0); Mean Corpuscular Hemoglobin 21.6 pg (27.0-31.0); Mean Corpuscular Volume 72.1 fl (78.0-98.0); Mean Platelet Volume 9.8 fL (7.4-10.4); Platelet Count 349 10x3/uL (130-400); RBC Distribution Width 19.8 % (11.5-14.5); Red Blood Cell (RBC) Count 3.66 mill/uL (4.20-5.40); White Blood Cell (WBC) Count 3.4 10x3/uL (4.8-10.8)
[2023-01-15 05:33] LABS: Anion Gap 10 mmol/L (10-20); BUN (Urea Nitrogen) 8 mg/dL (7.0-18.7); Calc. Creatinine Clearance 162 mL/min (70-130); Calcium 8.8 mg/dL (7.8-10.44); Carbon Dioxide 27 mmol/L (22-29); Chloride 108 mmol/L (98-107); Estimated GFR 92; Glucose 105 mg/dL (70-105); Potassium 3.7 mmol/L (3.5-5.1); Sodium 141 mmol/L (136-145)
[2023-01-15 06:34] LABS: CellaVision Operator ID LAB.GE; Hypochromia SLIGHT = 6-15 cells HPF (0-5); Microcytosis SLIGHT = 6-15 cells HPF (0-5); Platelet Morphology Comment Platelets Normal; Polychromasia MODERATE = 3-4 cells HPF (0-2)
[2023-01-15] MEDS: Mometasone 100 MCG/Formoterol 5 MCG 120 PUFF INHALER INH SCH ×2 (07:09→19:22)
[2023-01-15] MEDS ORDERED: Azithromycin 200 MG/5 ML Oral Suspension PO SCH (09:00)
[2023-01-15] MEDS: Folic Acid 1 MG TAB PO SCH (09:16)
[2023-01-15] MEDS: Losartan 25 MG TAB PO SCH (09:16)
[2023-01-15] MEDS: Nystatin 500,000 UNITS/5 ML UDCUP SSW SCH ×4 (09:17→19:53)
[2023-01-15] MEDS: pyridOXINE 50 MG (B6) TAB PO SCH (09:17)
[2023-01-15] MEDS: Nystatin Ointment 15 GM TUBE TOP SCH ×2 (09:18→19:53)
[2023-01-15] MEDS: Cyanocobalamin (Vitamin B-12) 1,000 MCG TAB PO SCH (09:22)
[2023-01-15] MEDS: Amlodipine 10 MG TAB PO SCH (09:26)
[2023-01-15] MEDS: Sulfameth/Trimethoprim DS 800-160mg TAB PO SCH (09:30)
[2023-01-15] MEDS ORDERED: Iopamidol 370 76% 100 ML VIAL ONE (10:09)
[2023-01-15 14:39] LABS: Hemoglobin A2 2.4 % (1.8-3.2); Hemoglobin F 0 % (0.0-2.0)
[2023-01-16] MEDS: CEFAZOLIN 2 GM in Sodium Chloride 0.9% 100 ML IVPB SCH ×3 (03:07→20:00)
[2023-01-16 05:11] LABS: #Eosinphils 0.1 thou/uL (0.0-0.7); #Monocytes 0.2 thou/uL (0.11-0.59); #Neutrophils 2.5 thou/uL (1.40-6.50); %Basophils 0.5 % (0.0-1.0); %Eosinophils 3.2 % (0.0-10.0); %Lymphocytes 22.4 % (21.0-51.0); %Monocytes 6.5 % (0.0-10.0); %Neutrophils 66.6 % (42.0-75.0); Hemoglobin 7.9 g/dL (12.0-16.0); Mean Corpuscular Hemoglobin 21.9 pg (27.0-31.0); Mean Corpuscular Volume 73.1 fl (78.0-98.0); Mean Platelet Volume 9.2 fL (7.4-10.4); Platelet Count 317 10x3/uL (130-400); RBC Distribution Width 20.4 % (11.5-14.5); White Blood Cell (WBC) Count 3.7 10x3/uL (4.8-10.8)
[2023-01-16 05:36] LABS: Anion Gap 11 mmol/L (10-20); BUN (Urea Nitrogen) 8 mg/dL (7.0-18.7); Calc. Creatinine Clearance 168 mL/min (70-130); Carbon Dioxide 25 mmol/L (22-29); Chloride 109 mmol/L (98-107); Estimated GFR 96; Glucose 100 mg/dL (70-105); Potassium 3.9 mmol/L (3.5-5.1); Sodium 141 mmol/L (136-145)
[2023-01-16] MEDS: Mometasone 100 MCG/Formoterol 5 MCG 120 PUFF INHALER INH SCH ×2 (07:08→19:07)
[2023-01-16] MEDS: Sulfameth/Trimethoprim DS 800-160mg TAB PO SCH (10:13)
[2023-01-16] MEDS: Losartan 25 MG TAB PO SCH (10:14)
[2023-01-16] MEDS: Nystatin 500,000 UNITS/5 ML UDCUP SSW SCH ×4 (10:14→20:01)
[2023-01-16] MEDS: Folic Acid 1 MG TAB PO SCH (10:14)
[2023-01-16] MEDS: Amlodipine 10 MG TAB PO SCH (10:14)
[2023-01-16] MEDS: Cyanocobalamin (Vitamin B-12) 1,000 MCG TAB PO SCH (10:14)
[2023-01-16] MEDS: Nystatin Ointment 15 GM TUBE TOP SCH ×2 (10:15→20:01)
[2023-01-16] MEDS: pyridOXINE 50 MG (B6) TAB PO SCH (10:15)
[2023-01-17] MEDS: CEFAZOLIN 2 GM in Sodium Chloride 0.9% 100 ML IVPB SCH ×2 (04:47→12:21)
[2023-01-17 04:55] LABS: #Eosinphils 0.1 thou/uL (0.0-0.7); #Monocytes 0.2 thou/uL (0.11-0.59); #Neutrophils 2.6 thou/uL (1.40-6.50); %Basophils 0.5 % (0.0-1.0); %Eosinophils 3.2 % (0.0-10.0); %Lymphocytes 21.3 % (21.0-51.0); %Monocytes 6.1 % (0.0-10.0); %Neutrophils 68.4 % (42.0-75.0); Hemoglobin 7.8 g/dL (12.0-16.0); Mean Corpuscular HGB CONC 30.2 g/dL (32.0-36.0); Mean Corpuscular Volume 72.9 fl (78.0-98.0); Mean Platelet Volume 8.9 fL (7.4-10.4); Platelet Count 305 10x3/uL (130-400); RBC Distribution Width 20.6 % (11.5-14.5); Red Blood Cell (RBC) Count 3.54 mill/uL (4.20-5.40); White Blood Cell (WBC) Count 3.8 10x3/uL (4.8-10.8)
[2023-01-17 05:18] LABS: Anion Gap 12 mmol/L (10-20); BUN (Urea Nitrogen) 10 mg/dL (7.0-18.7); Calc. Creatinine Clearance 175 mL/min (70-130); Calcium 8.9 mg/dL (7.8-10.44); Carbon Dioxide 24 mmol/L (22-29); Chloride 109 mmol/L (98-107); Estimated GFR 100; Glucose 106 mg/dL (70-105); Potassium 3.8 mmol/L (3.5-5.1); Sodium 141 mmol/L (136-145)
[2023-01-17 07:01] LABS: Anisocytosis SLIGHT = 6-15 cells HPF (0-5); CellaVision Operator ID lab.sh2; Hypochromia SLIGHT = 6-15 cells HPF (0-5); Macrocytosis SLIGHT = 6-15 cells HPF (0-5); Platelet Morphology Comment Platelets Normal; Polychromasia SLIGHT = 2-3 cells HPF (0-2)
[2023-01-17] MEDS: Mometasone 100 MCG/Formoterol 5 MCG 120 PUFF INHALER INH SCH (08:53)
[2023-01-17] MEDS: Amlodipine 10 MG TAB PO SCH (10:13)
[2023-01-17] MEDS: Losartan 25 MG TAB PO SCH (10:13)
[2023-01-17] MEDS: Folic Acid 1 MG TAB PO SCH (10:14)
[2023-01-17] MEDS: Nystatin 500,000 UNITS/5 ML UDCUP SSW SCH ×2 (10:14→13:10)
[2023-01-17] MEDS: Cyanocobalamin (Vitamin B-12) 1,000 MCG TAB PO SCH (10:14)
[2023-01-17] MEDS: Sulfameth/Trimethoprim DS 800-160mg TAB PO SCH (10:14)
[2023-01-17] MEDS: pyridOXINE 50 MG (B6) TAB PO SCH (10:14)
[2023-01-17] MEDS: Nystatin Ointment 15 GM TUBE TOP SCH (12:21)
[2023-01-17 16:04] VITALS: BP 123/77; TEMP 97.9
== END 2023-01-17 17:19 | disposition home health service (06) | DRG 974 ==
LOC: ERS 16:16 → ERHOLD 21:36 → 2NO 01-07 14:03 → MSONC 01-09 00:20
PROVIDERS: ADMIT Hospitalist; ATTEND Internal Medicine
PROC: 3E03329 Introduction of Other Anti-infective into Peripheral Vein, Percutaneous Approach (ICD-10-PCS; principal; 2023-01-06)
PROC: 30233N1 Transfusion of Nonautologous Red Blood Cells into Peripheral Vein, Percutaneous Approach (ICD-10-PCS; 2023-01-10)
PROC: B24BZZ4 Ultrasonography of Heart with Aorta, Transesophageal (ICD-10-PCS; 2023-01-14)
PROC: 02HV33Z Insertion of Infusion Device into Superior Vena Cava, Percutaneous Approach (ICD-10-PCS; 2023-01-17)
PROC: B548ZZA Ultrasonography of Superior Vena Cava, Guidance (ICD-10-PCS; 2023-01-17)
PROC: B5181ZA Fluoroscopy of Superior Vena Cava using Low Osmolar Contrast, Guidance (ICD-10-PCS; 2023-01-17)
DX: A41.01 Sepsis due to Methicillin susceptible Staphylococcus aureus (principal); J16.8 Pneumonia due to other specified infectious organisms; B20 Human immunodeficiency virus [HIV] disease; N17.9 Acute kidney failure, unspecified; J44.0 Chronic obstructive pulmonary disease with (acute) lower respiratory infection; E87.20 Acidosis, unspecified; Z68.41 Body mass index [BMI] 40.0-44.9, adult; B37.0 Candidal stomatitis; D61.818 Other pancytopenia; D62 Acute posthemorrhagic anemia; A41.89 Other specified sepsis; Z20.822 Contact with and (suspected) exposure to COVID-19; E86.0 Dehydration; R65.20 Severe sepsis without septic shock; E66.01 Morbid (severe) obesity due to excess calories; E83.42 Hypomagnesemia; E87.6 Hypokalemia; Z88.1 Allergy status to other antibiotic agents; Z79.899 Other long term (current) drug therapy
CPT/HCPCS: 36415; 36416; 36430; 36569; 51701; 71045; 71260; 74176; 74177; 80048; 80053; 80202; 81003; 81015; 82607; 82728; 83010; 83021; 83540; 83550; 83605; 83615; 83630; 83690; 83735; 84100; 84145; 84443; 84484; 84703; 85025; 85046; 86140; 86361; 86850; 86900; 86901; 87040; 87077; 87081; 87086; 87149; 87186; 87324; 87328; 87329; 87449; 87505; 87536; 87899; 93005; 93306; 93312; 96361; 96365; 96366; 96375; 96376; C1751; J0692; J0696; J1450; J1650; J2405; J2550; J2704; J2916; J3010; J3370; J3370-JW; J3475; J3480; J3490; J7050; J7070; J7120; P9016; Q9967

== ENCOUNTER 2023-11-05 10:03 | Emergency (ER) | payer OTHER | END 2023-11-05 11:25 | disposition home or self-care (01) | LOC: ERS 10:03 | DX: L02.416 Cutaneous abscess of left lower limb (principal); E11.9 Type 2 diabetes mellitus without complications; B20 Human immunodeficiency virus [HIV] disease; I10 Essential (primary) hypertension; J44.9 Chronic obstructive pulmonary disease, unspecified; Z55.6 Problems related to health literacy; Z79.899 Other long term (current) drug therapy | CPT/HCPCS: 10060 ==

== ENCOUNTER 2024-10-07 18:19 | Emergency (ER) | payer OTHER | END 2024-10-07 20:58 | disposition home or self-care (01) | LOC: ERS 18:19 | DX: M27.2 Inflammatory conditions of jaws (principal); B37.0 Candidal stomatitis; I10 Essential (primary) hypertension | CPT/HCPCS: 99282 ==

== ENCOUNTER 2025-08-24 13:56 | Emergency (ER) | payer MEDICAID ==
[~2025-08-24 13:56] MED LIST: Iopamidol-370 76% 500 ML MDV (1 ML CHARGE) ONE
[2025-08-24 17:19] LABS: #Basophils Less than 0.03 10x3/uL (0.0-0.2); #Eosinophils 0.24 10x3/uL (0.0-0.7); #Monocytes 0.37 10x3/uL (0.11-0.59); #Neutrophils 5.14 10x3/uL (1.40-6.50); %Basophils 0.3 % (0.0-1.0); %Eosinophils 3.5 % (0.0-10.0); %Lymphocytes 15.0 % (21.0-51.0); %Monocytes 5.3 % (0.0-10.0); %Neutrophils 74.2 % (42.0-75.0); Hematocrit 27.9 % (36.0-47.0); Hemoglobin 8.3 g/dL (12.0-16.0); Mean Corpuscular Hemoglobin 19.7 pg (27.0-31.0); Mean Corpuscular Volume 66.1 fL (78.0-98.0); Platelet Count 337 10x3/uL (130-400); Red Blood Cell (RBC) Count 4.22 mill/uL (4.20-5.40); White Blood Cell (WBC) Count 6.93 10x3/uL (4.8-10.8)
[2025-08-24 17:32] LABS: ALT (SGPT) Less than 7 U/L (Less than 34); AST (SGOT) 13 U/L (11-34); Albumin 3.7 g/dL (3.1-4.5); Alkaline Phosphatase 66 U/L (40-110); Anion Gap 12 mmol/L (10-20); BUN (Urea Nitrogen) 9 mg/dL (7.0-18.7); Bilirubin, Total 0.3 mg/dL (0.3-1.2); Calc. Creatinine Clearance 0 mL/min (70-130); Calcium 9.5 mg/dL (7.8-10.44); Carbon Dioxide 26 mmol/L (22-29); Chloride 106 mmol/L (98-107); Globulin 3.8 g/dL (2.4-3.5); Glucose 94 mg/dL (70-105); Potassium 4.1 mmol/L (3.5-5.1); Sodium 140 mmol/L (136-145)
[2025-08-24 18:03] LABS: Anisocytosis SLIGHT = 6-15 cells HPF (0-5); Macrocytosis SLIGHT = 6-15 cells HPF (0-5); Microcytosis MODERATE=15-30 cells HPF (0-5); Ovalocytes SLIGHT = 2-5 cells HPF (0-1); Platelet Adequacy Comment Platelets Normal; Polychromasia SLIGHT = 2-3 cells HPF (0-2); Schistocytes SLIGHT = 2-5 cells HPF (0-1); Target Cells SLIGHT = 2-5 cells HPF (0-1)
== END 2025-08-24 19:12 | disposition home or self-care (01) ==
LOC: ERS 13:56
DX: B37.0 Candidal stomatitis (principal); J02.9 Acute pharyngitis, unspecified; I10 Essential (primary) hypertension; J44.89 Other specified chronic obstructive pulmonary disease; Z79.899 Other long term (current) drug therapy
CPT/HCPCS: 36415; 70491; 71046; 71260; 80053; 85025; 87081; 87428; 87430; 96374